=== PATIENT | female | born 1985 | race Caucasian/White ===

== ENCOUNTER → 2017-01-15 | Outpatient (CLI) | payer BC ==
[2017-01-15 07:34] LABS: ANION GAP 8 MEQ/L (8-16); BLOOD UREA NITROGEN 15 MG/DL (7-18); CALCIUM LEVEL 9.1 MG/DL (8.5-10.1); CARBON DIOXIDE LEVEL 28 MEQ/L (21-32); CHLORIDE LEVEL 103 MEQ/L (98-107); CREATININE FOR GFR 0.83 MG/DL (0.55-1.02); FREE T4 1.14 NG/DL (0.76-1.46); GLOMERULAR FILTRATION RATE > 60.0 (>60); GLUCOSE, FASTING 93 MG/DL (70-105); POTASSIUM SERUM 3.9 MEQ/L (3.5-5.1); SODIUM LEVEL 139 MEQ/L (136-145)
[2017-01-15 11:29] LABS: PROGESTERONE 0.4 NG/ML
[2017-01-15 11:30] LABS: LUTEINIZING HORMONE 19.6 mIU/mL
[2017-01-15 11:31] LABS: ESTRADIOL 70.5 PG/ML; FOLLICLE STIMULATING HORMONE 7.7 mIU/mL
== END ==
LOC: M LAB 06:07
PROVIDERS: ATTEND Family Medicine
DX: N92.6 Irregular menstruation, unspecified (principal)

== ENCOUNTER → 2017-03-07 | Outpatient (REF) | payer BC ==
[2017-03-07 13:50] LABS: FREE T4 1.44 NG/DL (0.76-1.46)
== END ==
LOC: M LABDRAWP 12:16
PROVIDERS: ATTEND Family Medicine
DX: E03.9 Hypothyroidism, unspecified (principal); E28.2 Polycystic ovarian syndrome

== ENCOUNTER → 2017-03-26 | Outpatient (REF) | payer BC | LOC: M LABDRAWP 15:43 | PROVIDERS: ATTEND Family Medicine | DX: Z23 Encounter for immunization (principal); N92.6 Irregular menstruation, unspecified ==

== ENCOUNTER → 2017-11-07 | Outpatient (REF) | payer BC ==
[2017-11-07 12:00] LABS: BASO # 0.1 10^3/uL (0.0-0.2); BASO % 0.9 % (0.0-1.0); EOS # 0.1 10^3/uL (0.0-0.50); HEMATOCRIT 37.5 % (36.0-47.0); HEMOGLOBIN 12.7 g/dl (12.0-15.5); IMMATURE GRANULOCYTE % 0.2 % (0-3.0); LYMPH % 22.5 % (24.0-44.0); MEAN CORPUSCULAR HEMOGLOBIN 31.1 pg (27.0-33.0); MEAN CORPUSCULAR HGB CONC 33.9 g/dl (32.0-36.5); MEAN CORPUSCULAR VOLUME 91.7 fl (80.0-96.0); MONO # 0.8 10^3/uL (0.0-0.8); MONO % 9.1 % (0.0-5.0); NEUTROPHILS # 5.7 10^3/uL (1.8-7.7); NEUTROPHILS % 66.3 % (36.0-66.0); PLATELET COUNT, AUTOMATED 263 10^3/uL (150-450); RED BLOOD COUNT 4.09 10^6/uL (4.00-5.40); RED CELL DISTRIBUTION WIDTH 12.7 % (11.5-14.5); WHITE BLOOD COUNT 8.7 10^3/uL (4.0-10.0)
[2017-11-07 13:36] LABS: RUBELLA IgG QUALITATIVE IMMUNE (IMMUNE)
[2017-11-07 13:37] LABS: HBsAg Prenatal NEGATIVE (NEGATIVE)
[2017-11-07 14:04] LABS: CHLAMYDIA DNA AMPLIFICATION NEGATIVE (NEGATIVE); GC DNA AMPLIFICATION NEGATIVE (NEGATIVE)
[2017-11-07 14:05] LABS: HEPATITIS C VIRUS ABY INDEX < 0.0 INDEX (<0.8)
[2017-11-07 14:06] LABS: HIV 1&2 SCREEN CENTAUR NEGATIVE (NEGATIVE)
== END ==
LOC: M LAB REF 11:24
DX: Z34.81 Encounter for supervision of other normal pregnancy, first trimester (principal); Z3A.08 8 weeks gestation of pregnancy
CPT/HCPCS: 86762

== ENCOUNTER → 2017-12-08 | Outpatient (REF) | payer BC ==
[2017-12-08 13:46] LABS: FREE T4 1.27 NG/DL (0.76-1.46)
== END ==
LOC: M LAB REF 11:56
DX: Z34.81 Encounter for supervision of other normal pregnancy, first trimester (principal); Z3A.00 Weeks of gestation of pregnancy not specified
CPT/HCPCS: 84443

== ENCOUNTER → 2018-01-22 | Outpatient (CLI) | payer BC | LOC: M RAD 12:14 | DX: Z34.82 Encounter for supervision of other normal pregnancy, second trimester (principal); Z36.89 Encounter for other specified antenatal screening; Z3A.20 20 weeks gestation of pregnancy | CPT/HCPCS: 76811 ==

== ENCOUNTER → 2018-02-27 | Outpatient (CLI) | payer BC | LOC: M SMT 10:04 | DX: S90.112A Contusion of left great toe without damage to nail, initial encounter (principal); X58.XXXA Exposure to other specified factors, initial encounter; Y92.9 Unspecified place or not applicable | CPT/HCPCS: 73620 ==

== ENCOUNTER 2018-02-28 14:13 | Emergency (ER) | payer BC ==
[2018-02-28 15:00] LABS: BASO % 0.3 % (0.0-1.0); EOS % 0.2 % (0.0-3.0); HEMATOCRIT 36.1 % (36.0-47.0); HEMOGLOBIN 12.7 g/dl (12.0-15.5); IMMATURE GRANULOCYTE % 0.5 % (0-3.0); LYMPH % 15.6 % (24.0-44.0); MEAN CORPUSCULAR HEMOGLOBIN 32.4 pg (27.0-33.0); MEAN CORPUSCULAR HGB CONC 35.2 g/dl (32.0-36.5); MEAN CORPUSCULAR VOLUME 92.1 fl (80.0-96.0); MONO % 7.5 % (0.0-5.0); NEUTROPHILS # 9.8 10^3/uL (1.8-7.7); NEUTROPHILS % 75.9 % (36.0-66.0); PLATELET COUNT, AUTOMATED 197 10^3/uL (150-450); RED BLOOD COUNT 3.92 10^6/uL (4.00-5.40); WHITE BLOOD COUNT 12.9 10^3/uL (4.0-10.0)
[2018-02-28 15:04] LABS: KETONE, URINE AUTO RFX NEGATIVE (NEGATIVE); LEUKOCYTE ESTERASE UR AUTO RFX NEGATIVE (NEGATIVE); NITRITE, URINE AUTO RFX NEGATIVE (NEGATIVE); RBC, URINE AUTO RFX 0 /HPF (0-3); SPECIFIC GRAVITY UR AUTO RFX 1.002 (1.002-1.035); SQUAM EPITHELIAL CELL UR AURFX 0 /HPF (0-6); WBC, URINE AUTO RFX 0 /HPF (0-3)
[2018-02-28] MEDS: ACETAMINOPHEN 325 MG TAB PO (15:16)
[2018-02-28 15:37] LABS: ANION GAP 9 MEQ/L (8-16); BLOOD UREA NITROGEN 10 MG/DL (7-18); C REACTIVE PROTEIN QUANTITATIV 1.01 MG/DL (0.00-0.30); CALCIUM LEVEL 8.5 MG/DL (8.5-10.1); CARBON DIOXIDE LEVEL 21 MEQ/L (21-32); CHLORIDE LEVEL 110 MEQ/L (98-107); CREATININE FOR GFR 0.57 MG/DL (0.55-1.30); GLOMERULAR FILTRATION RATE > 60.0 (>60); GLUCOSE, FASTING 97 MG/DL (70-100); POTASSIUM SERUM 3.6 MEQ/L (3.5-5.1); SODIUM LEVEL 140 MEQ/L (136-145)
== END 2018-02-28 17:28 | disposition home or self-care (01) ==
LOC: M ED 14:13
DX: O26.90 Pregnancy related conditions, unspecified, unspecified trimester (principal); R10.9 Unspecified abdominal pain
CPT/HCPCS: 76775

== ENCOUNTER → 2018-03-12 | Outpatient (CLI) | payer BC ==
[2018-03-12 10:07] LABS: HEMATOCRIT 38.5 % (36.0-47.0); HEMOGLOBIN 13.1 g/dl (12.0-15.5); MEAN CORPUSCULAR HEMOGLOBIN 31.6 pg (27.0-33.0); MEAN CORPUSCULAR VOLUME 92.8 fl (80.0-96.0); PLATELET COUNT, AUTOMATED 222 10^3/uL (150-450); RED BLOOD COUNT 4.15 10^6/uL (4.00-5.40); WHITE BLOOD COUNT 14.1 10^3/uL (4.0-10.0)
[2018-03-12 10:29] LABS: GLUCOSE CHALLENGE TEST 1 HOUR 101 MG/DL (LESS THAN 140)
== END ==
LOC: M LAB 08:19
DX: Z34.82 Encounter for supervision of other normal pregnancy, second trimester (principal); Z36.89 Encounter for other specified antenatal screening
CPT/HCPCS: 82950

== ENCOUNTER 2018-03-30 07:11 | Outpatient (CLI) | payer BC ==
[2018-03-30 08:14] LABS: HEMATOCRIT 36.7 % (36.0-47.0); HEMOGLOBIN 12.9 g/dl (12.0-15.5); MEAN CORPUSCULAR HEMOGLOBIN 31.9 pg (27.0-33.0); MEAN CORPUSCULAR HGB CONC 35.1 g/dl (32.0-36.5); MEAN CORPUSCULAR VOLUME 90.8 fl (80.0-96.0); PLATELET COUNT, AUTOMATED 204 10^3/uL (150-450); RED BLOOD COUNT 4.04 10^6/uL (4.00-5.40); RED CELL DISTRIBUTION WIDTH 12.9 % (11.5-14.5); WHITE BLOOD COUNT 11.9 10^3/uL (4.0-10.0)
[2018-03-30] MEDS: FIORICET TAB PO ×2 (08:14→09:17)
[2018-03-30 08:24] LABS: CREATININE,RANDOM URINE 67.3 MG/DL
[2018-03-30 08:24] LABS: TOTAL PROTEIN,RANDOM URINE 17.9 MG/DL (0.0-12.0)
[2018-03-30 08:33] LABS: ALT/SGPT 18 U/L (12-78); AST/SGOT 14 U/L (7-37); BILIRUBIN,TOTAL 0.2 MG/DL (0.2-1.0); CREATININE FOR GFR 0.53 MG/DL (0.55-1.30); GLOMERULAR FILTRATION RATE > 60.0 (>60); LDH LACTATE DEHYDROGENASE 203 U/L (84-246); URIC ACID 2.8 MG/DL (2.6-6.0)
[2018-03-30 08:36] LABS: ALBUMIN 2.7 GM/DL (3.2-5.2); ALBUMIN/GLOBULIN RATIO 0.77 (1.00-1.93); ALKALINE PHOSPHATASE 127 U/L (45-117); ALT/SGPT 19 U/L (12-78); ANION GAP 8 MEQ/L (8-16); AST/SGOT 15 U/L (7-37); BILIRUBIN,TOTAL 0.2 MG/DL (0.2-1.0); BLOOD UREA NITROGEN 7 MG/DL (7-18); CALCIUM LEVEL 8.7 MG/DL (8.5-10.1); CARBON DIOXIDE LEVEL 22 MEQ/L (21-32); CHLORIDE LEVEL 109 MEQ/L (98-107); CREATININE FOR GFR 0.52 MG/DL (0.55-1.30); GLOMERULAR FILTRATION RATE > 60.0 (>60); GLUCOSE, FASTING 99 MG/DL (70-100); POTASSIUM SERUM 3.9 MEQ/L (3.5-5.1); SODIUM LEVEL 139 MEQ/L (136-145); TOTAL PROTEIN 6.2 GM/DL (6.4-8.2)
[2018-03-30 09:06] LABS: AMORPHOUS SEDIMENT SMALL (NEGATIVE); APPEARANCE, URINE HAZY (CLEAR); BACTERIA, URINE AUTO 2+ (NEGATIVE); BILIRUBIN, URINE AUTO NEGATIVE (NEGATIVE); BLOOD, URINE BLOOD NEGATIVE (NEGATIVE); COLOR, URINE YELLOW (YELLOW); GLUCOSE, URINE (UA) AUTO NEGATIVE (NEGATIVE); KETONE, URINE AUTO NEGATIVE (NEGATIVE); LEUKOCYTE ESTERASE, URINE AUTO TRACE (NEGATIVE); MUCUS, URINE SMALL (NEGATIVE); NITRITE, URINE AUTO NEGATIVE (NEGATIVE); PROTEIN, URINE AUTO NEGATIVE (NEGATIVE); RBC, URINE AUTO 1 /HPF (0-3); SPECIFIC GRAVITY URINE AUTO 1.013 (1.002-1.035); SQUAMOUS EPITHELIAL CELL UR AU 2 /HPF (0-6); UROBILINOGEN, URINE AUTO 0.2 mg/dL (0.0-2.0); WBC, URINE AUTO 2 /HPF (0-3)
[2018-03-30] MEDS: KETOROLAC 60 MG/2 ML VIAL (J1885) IM (10:10)
[2018-03-30] MEDS ORDERED: FIORICET TAB PO (15:00)
== END 2018-03-30 10:59 | disposition home or self-care (01) ==
LOC: M LDO 07:11
DX: O99.89 Other specified diseases and conditions complicating pregnancy, childbirth and the puerperium (principal); R51 Headache; O26.893 Other specified pregnancy related conditions, third trimester; R03.0 Elevated blood-pressure reading, without diagnosis of hypertension; Z3A.29 29 weeks gestation of pregnancy
CPT/HCPCS: J1885

== ENCOUNTER → 2018-03-31 | Outpatient (CLI) | payer BC ==
[2018-03-31 14:53] LABS: URINE TOTAL PROTEIN 8.6 MG/DL (0-12)
[2018-03-31 15:22] LABS: TOTAL PROTEIN 24 HOUR URINE 292.4 MG/24HR (50-150); TOTAL VOLUME, URINE 3400 ML
== END ==
LOC: M SMT 12:57
DX: Z36.9 Encounter for antenatal screening, unspecified (principal); O13.3 Gestational [pregnancy-induced] hypertension without significant proteinuria, third trimester; Z3A.28 28 weeks gestation of pregnancy
CPT/HCPCS: 81050

== ENCOUNTER 2018-04-02 17:29 | Outpatient (CLI) | payer BC ==
[2018-04-02 18:51] LABS: HEMATOCRIT 35.1 % (36.0-47.0); MEAN CORPUSCULAR HEMOGLOBIN 31.8 pg (27.0-33.0); MEAN CORPUSCULAR HGB CONC 34.2 g/dl (32.0-36.5); MEAN CORPUSCULAR VOLUME 93.1 fl (80.0-96.0); PLATELET COUNT, AUTOMATED 206 10^3/uL (150-450); RED BLOOD COUNT 3.77 10^6/uL (4.00-5.40); RED CELL DISTRIBUTION WIDTH 12.9 % (11.5-14.5); WHITE BLOOD COUNT 12.3 10^3/uL (4.0-10.0)
[2018-04-02 19:09] LABS: TOTAL PROTEIN,RANDOM URINE 16.5 MG/DL (0.0-12.0)
[2018-04-02 19:09] LABS: CREATININE,RANDOM URINE 89.6 MG/DL
[2018-04-02 19:10] LABS: ALT/SGPT 31 U/L (12-78); AST/SGOT 27 U/L (7-37); BILIRUBIN,TOTAL 0.2 MG/DL (0.2-1.0); CREATININE FOR GFR 0.62 MG/DL (0.55-1.30); GLOMERULAR FILTRATION RATE > 60.0 (>60); LDH LACTATE DEHYDROGENASE 198 U/L (84-246)
== END 2018-04-02 20:11 | disposition home or self-care (01) ==
LOC: M LDO 17:29
DX: O13.3 Gestational [pregnancy-induced] hypertension without significant proteinuria, third trimester (principal); Z3A.29 29 weeks gestation of pregnancy
CPT/HCPCS: G0463

== ENCOUNTER → 2018-04-09 | Outpatient (REF) | payer BC ==
[2018-04-09 15:34] LABS: TOTAL PROTEIN,RANDOM URINE 13.7 MG/DL (0.0-12.0)
== END ==
LOC: M LAB REF 13:32
DX: O13.3 Gestational [pregnancy-induced] hypertension without significant proteinuria, third trimester (principal)

== ENCOUNTER → 2018-04-09 | Outpatient (CLI) | payer BC ==
[2018-04-09 19:22] LABS: HEMATOCRIT 41.4 % (36.0-47.0); HEMOGLOBIN 13.5 g/dl (12.0-15.5); MEAN CORPUSCULAR HEMOGLOBIN 31.1 pg (27.0-33.0); MEAN CORPUSCULAR HGB CONC 32.6 g/dl (32.0-36.5); MEAN CORPUSCULAR VOLUME 95.4 fl (80.0-96.0); PLATELET COUNT, AUTOMATED 243 10^3/uL (150-450); RED BLOOD COUNT 4.34 10^6/uL (4.00-5.40); RED CELL DISTRIBUTION WIDTH 13.1 % (11.5-14.5); WHITE BLOOD COUNT 15.1 10^3/uL (4.0-10.0)
[2018-04-09 19:35] LABS: ALT/SGPT 23 U/L (12-78); AST/SGOT 15 U/L (7-37); BILIRUBIN,TOTAL 0.2 MG/DL (0.2-1.0); GLOMERULAR FILTRATION RATE > 60.0 (>60); LDH LACTATE DEHYDROGENASE 195 U/L (84-246); URIC ACID 2.9 MG/DL (2.6-6.0)
== END ==
LOC: M SMT 10:58
DX: O13.3 Gestational [pregnancy-induced] hypertension without significant proteinuria, third trimester (principal); Z3A.00 Weeks of gestation of pregnancy not specified
CPT/HCPCS: 84460

== ENCOUNTER → 2018-04-21 | Outpatient (CLI) | payer BC | LOC: M SMT 14:58 | DX: O13.3 Gestational [pregnancy-induced] hypertension without significant proteinuria, third trimester (principal) | CPT/HCPCS: 76816 ==

== ENCOUNTER → 2018-05-07 | Outpatient (REF) | payer BC | LOC: M LAB REF 17:13 | DX: Z34.83 Encounter for supervision of other normal pregnancy, third trimester (principal); Z3A.00 Weeks of gestation of pregnancy not specified ==

== ENCOUNTER 2018-05-11 16:15 | Outpatient (CLI) | payer BC ==
[2018-05-11] MEDS: ONDANSETRON 4 MG ORAL DISINTEGRATING TAB (Q0162 PER 1MG) PO ×2 (17:10)
[2018-05-11 18:00] LABS: HEMATOCRIT 39.4 % (36.0-47.0); HEMOGLOBIN 13.4 g/dl (12.0-15.5); MEAN CORPUSCULAR HEMOGLOBIN 31.4 pg (27.0-33.0); MEAN CORPUSCULAR VOLUME 92.3 fl (80.0-96.0); PLATELET COUNT, AUTOMATED 192 10^3/uL (150-450); RED BLOOD COUNT 4.27 10^6/uL (4.00-5.40); RED CELL DISTRIBUTION WIDTH 12.9 % (11.5-14.5); WHITE BLOOD COUNT 13.7 10^3/uL (4.0-10.0)
[2018-05-11] MEDS: BETAMETHASONE SOLUSPAN 6MG/ML INJ 5ML (J0702) IM ×2 (18:01)
[2018-05-11 18:07] LABS: TOTAL PROTEIN,RANDOM URINE 7.7 MG/DL (0.0-12.0)
[2018-05-11 18:07] LABS: CREATININE,RANDOM URINE 40.9 MG/DL
[2018-05-11 18:18] LABS: ALBUMIN 2.7 GM/DL (3.2-5.2); ALBUMIN/GLOBULIN RATIO 0.75 (1.00-1.93); ALKALINE PHOSPHATASE 225 U/L (45-117); ALT/SGPT 25 U/L (12-78); ANION GAP 10 MEQ/L (8-16); AST/SGOT 23 U/L (7-37); BILIRUBIN,TOTAL 0.3 MG/DL (0.2-1.0); BLOOD UREA NITROGEN 12 MG/DL (7-18); CALCIUM LEVEL 8.7 MG/DL (8.5-10.1); CARBON DIOXIDE LEVEL 22 MEQ/L (21-32); CHLORIDE LEVEL 108 MEQ/L (98-107); CREATININE FOR GFR 0.66 MG/DL (0.55-1.30); GLOMERULAR FILTRATION RATE > 60.0 (>60); GLUCOSE, FASTING 75 MG/DL (70-100); LDH LACTATE DEHYDROGENASE 230 U/L (84-246); SODIUM LEVEL 140 MEQ/L (136-145); TOTAL PROTEIN 6.3 GM/DL (6.4-8.2); URIC ACID 4.6 MG/DL (2.6-6.0)
[2018-05-11 18:23] LABS: GOLD SPEC TUBE RECIEVED
== END 2018-05-11 18:40 | disposition home or self-care (01) ==
LOC: M LDO 16:15
DX: O16.3 Unspecified maternal hypertension, third trimester (principal); Z3A.35 35 weeks gestation of pregnancy
CPT/HCPCS: J0702

== ENCOUNTER 2018-05-12 16:59 | Outpatient (CLI) | payer BC ==
[2018-05-12] MEDS: BETAMETHASONE SOLUSPAN 6MG/ML INJ 5ML (J0702) IM (17:55)
== END 2018-05-12 18:03 | disposition home or self-care (01) ==
LOC: M LDO 16:59
DX: O13.3 Gestational [pregnancy-induced] hypertension without significant proteinuria, third trimester (principal); Z3A.35 35 weeks gestation of pregnancy
CPT/HCPCS: J0702

== ENCOUNTER 2018-05-13 16:35 | Outpatient (CLI) | payer BC | END 2018-05-13 17:57 | disposition home or self-care (01) | LOC: M LDO 16:35 | DX: O13.3 Gestational [pregnancy-induced] hypertension without significant proteinuria, third trimester (principal); Z3A.35 35 weeks gestation of pregnancy | CPT/HCPCS: 59025 ==

== ENCOUNTER → 2018-05-13 | Outpatient (CLI) | payer BC | LOC: M SMT 14:54 | DX: O13.3 Gestational [pregnancy-induced] hypertension without significant proteinuria, third trimester (principal); Z3A.35 35 weeks gestation of pregnancy | CPT/HCPCS: 76816 ==

== ENCOUNTER 2018-05-17 18:48 | Inpatient (IN) | payer BC ==
[2018-05-17 19:42] LABS: HEMATOCRIT 36.9 % (36.0-47.0); HEMOGLOBIN 12.8 g/dl (12.0-15.5); MEAN CORPUSCULAR HEMOGLOBIN 31.7 pg (27.0-33.0); MEAN CORPUSCULAR HGB CONC 34.7 g/dl (32.0-36.5); MEAN CORPUSCULAR VOLUME 91.3 fl (80.0-96.0); PLATELET COUNT, AUTOMATED 188 10^3/uL (150-450); RED BLOOD COUNT 4.04 10^6/uL (4.00-5.40); RED CELL DISTRIBUTION WIDTH 12.6 % (11.5-14.5); WHITE BLOOD COUNT 13.8 10^3/uL (4.0-10.0)
[2018-05-17] MEDS: PROMETHAZINE INJ 25 MG/ML VIAL (J2550) IV (19:47)
[2018-05-17 20:00] LABS: ALT/SGPT 29 U/L (12-78); AST/SGOT 30 U/L (7-37); BILIRUBIN,TOTAL 0.3 MG/DL (0.2-1.0); CREATININE FOR GFR 0.71 MG/DL (0.55-1.30); GLOMERULAR FILTRATION RATE > 60.0 (>60); LDH LACTATE DEHYDROGENASE 339 U/L (84-246); URIC ACID 4.4 MG/DL (2.6-6.0)
[2018-05-17 20:06] LABS: CREATININE,RANDOM URINE 69.6 MG/DL
[2018-05-17 20:06] LABS: TOTAL PROTEIN,RANDOM URINE 31.5 MG/DL (0.0-12.0)
[2018-05-17] MEDS: LR 1,000 ML IV ×3 (21:35→23:45)
[2018-05-17] MEDS: BICITRA 30ML SOLN UDC PO (21:57)
[2018-05-17] MEDS ORDERED: MORPHINE PRES-FREE INJ 10 MG/10 ML VIAL (J2274) As Ordered (22:00)
[2018-05-17] MEDS ORDERED: OXYTOCIN INJ 10 UNITS/ML VIAL (J2590) As Ordered ×4 (22:00→22:09)
[2018-05-17] MEDS ORDERED: dexameTHASONE 4 MG/ML 1ML VIAL (J1100) As Ordered (22:09)
[2018-05-17] MEDS ORDERED: ONDANSETRON 4MG/2ML VIAL (J2405) As Ordered (22:10)
[2018-05-17] MEDS ORDERED: NALBUPHINE HCL 10 MG/ML AMP (J2300) IV (22:22)
[2018-05-17] MEDS ORDERED: ONDANSETRON 4MG/2ML VIAL (J2405) IV ×2 (22:22→23:45)
[2018-05-17] MEDS ORDERED: NALOXONE INJ 0.4 MG/1 ML VIAL (J2310) IV ×2 (22:22)
[2018-05-17] MEDS ORDERED: METOCLOPRAMIDE INJ 10MG/2ML VIAL (J2765) IV ×2 (22:22→23:45)
[2018-05-17 23:06] LABS: CORD GAS ABE V -0.2; CORD GAS HCO3 V 25.3 MEQ/L; CORD GAS PCO2 V 43.9 mmHg; CORD GAS PH V 7.378 UNITS; CORD GAS PO2 V 25.2 mmHg; CORD GAS SBC V 23.5 MEQ/L; CORD GAS TCO2 V 26.6 MEQ/L
[2018-05-17 23:07] LABS: CORD GAS ABE A 0.4; CORD GAS HCO3 A 29.1 MEQ/L; CORD GAS O2 SAT A < 15.0 %; CORD GAS PH A 7.275 UNITS; CORD GAS PO2 A < 10.0 mmHg
[2018-05-17] MEDS: OXYTOCIN DRIP 30 UNITS in APPROPRIATE DILUENT 1 EA IV (23:34)
[2018-05-17] MEDS ORDERED: KETOROLAC 30 MG/ML VIAL (J1885) As Ordered (23:42)
[2018-05-17] MEDS ORDERED: OXYTOCIN 30 UNITS IN 0.9% NaCl 500ML IV BAG (J2590) As Ordered (23:44)
[2018-05-17] MEDS: KETOROLAC 30 MG/ML VIAL (J1885) IV (23:44)
[2018-05-17] MEDS ORDERED: MOM 30ML SUSPENSION UDC PO (23:45)
[2018-05-17] MEDS ORDERED: MEPERIDINE INJ 25 MG/ML VIAL (J2175) IV (23:45)
[2018-05-17] MEDS ORDERED: RHOGAM 300 MCG (1500 IU) INJ (J2790) IM (23:45)
[2018-05-17] MEDS ORDERED: fentaNYL 100 MCG/2 ML INJECTION (J3010) IV (23:45)
[2018-05-17] MEDS ORDERED: PERCOCET 5MG/325MG TAB PO ×3 (23:45)
[2018-05-17] MEDS ORDERED: MEASLES,MUMPS,RUBELLA VACCINE INJ (MMR-II) (90707) SC (23:45)
[2018-05-18] MEDS: KETOROLAC 30 MG/ML VIAL (J1885) IV ×3 (06:06→18:00)
[2018-05-18 06:48] LABS: HEMATOCRIT 33.1 % (36.0-47.0); HEMOGLOBIN 11.5 g/dl (12.0-15.5); MEAN CORPUSCULAR HEMOGLOBIN 31.5 pg (27.0-33.0); MEAN CORPUSCULAR HGB CONC 34.7 g/dl (32.0-36.5); MEAN CORPUSCULAR VOLUME 90.7 fl (80.0-96.0); PLATELET COUNT, AUTOMATED 147 10^3/uL (150-450); RED BLOOD COUNT 3.65 10^6/uL (4.00-5.40); RED CELL DISTRIBUTION WIDTH 12.4 % (11.5-14.5); WHITE BLOOD COUNT 25.5 10^3/uL (4.0-10.0)
[2018-05-18] MEDS: LR 1,000 ML IV ×2 (07:34→20:29)
[2018-05-18] MEDS: PRENATAL VITAMINS CHEWABLE TABLET PO (08:58)
[2018-05-18] MEDS: ESCITALOPRAM OXALATE 5MG TABLET (LEXAPRO) PO (09:59)
[2018-05-18] MEDS: DOCUSATE SODIUM 100 MG CAP PO (19:27)
[2018-05-18] MEDS: NORCO, ANEXSIA 5/325MG TABLET (HYDROcodone/ACETAMINOPHEN) PO ×2 (19:28→23:38)
[2018-05-19] MEDS: IBUPROFEN 800 MG TAB PO ×3 (02:56→17:55)
[2018-05-19] MEDS: NORCO, ANEXSIA 5/325MG TABLET (HYDROcodone/ACETAMINOPHEN) PO ×3 (07:32→18:48)
[2018-05-19] MEDS: ESCITALOPRAM OXALATE 5MG TABLET (LEXAPRO) PO (09:39)
[2018-05-19] MEDS: PRENATAL VITAMINS CHEWABLE TABLET PO (09:40)
[2018-05-19] MEDS: ONDANSETRON 4MG/2ML VIAL (J2405) IV ×3 (20:18→20:19)
[2018-05-19] MEDS: DOCUSATE SODIUM 100 MG CAP PO (20:22)
[2018-05-19] MEDS ORDERED: ONDANSETRON 4MG/2ML VIAL (J2405) IV (20:30)
[2018-05-20] MEDS: IBUPROFEN 800 MG TAB PO ×2 (02:16→09:35)
[2018-05-20] MEDS: NORCO, ANEXSIA 5/325MG TABLET (HYDROcodone/ACETAMINOPHEN) PO ×2 (02:18→09:35)
[2018-05-20] MEDS: ESCITALOPRAM OXALATE 5MG TABLET (LEXAPRO) PO (08:17)
[2018-05-20] MEDS: PRENATAL VITAMINS CHEWABLE TABLET PO (08:17)
== END 2018-05-20 10:22 | disposition home or self-care (01) | DRG 540 ==
LOC: M LDO 18:48 → M LDI 19:25 → M OBS 05-18 10:50
PROC: 10D00Z1 Extraction of Products of Conception, Low, Open Approach (ICD-10-PCS; principal; 2018-05-17 22:14)
DX: O14.14 Severe pre-eclampsia complicating childbirth (principal); Z37.0 Single live birth; Z3A.36 36 weeks gestation of pregnancy; O32.1XX0 Maternal care for breech presentation, not applicable or unspecified

== ENCOUNTER → 2019-05-27 | Outpatient (REF) | payer BC ==
[~2019-05-27] MED LIST: BUTA-198 PO; BUTA1CAP4 PO; ESCI5SOL3 PO; IBUP-1114 PO; LEXA5TAB13 PO; MAPA500T2 PO; PHEN25IN3 PO; PRENCHW PO; RANI15TA PO; TRAZ-252 PO; TUMS500C PO; TYLE500T78 PO; VICO5TAB17 PO; ZOFR4TAB14 SL; [UNRECOGNIZED DRUG - OTHER] PO
[2019-05-27 11:07] LABS: BASO % 0.6 % (0.0-1.0); EOS # 0.1 10^3/uL (0.0-0.5); EOS % 1.1 % (0.0-3.0); HEMATOCRIT 43.5 % (36.0-47.0); HEMOGLOBIN 14.4 g/dl (12.0-15.5); LYMPH # 1.5 10^3/uL (1.5-5.0); LYMPH % 22.3 % (24.0-44.0); MEAN CORPUSCULAR HEMOGLOBIN 30.7 pg (27.0-33.0); MEAN CORPUSCULAR HGB CONC 33.1 g/dl (32.0-36.5); MEAN CORPUSCULAR VOLUME 92.8 fl (80.0-96.0); MONO # 0.6 10^3/uL (0.0-0.8); MONO % 9.2 % (0.0-5.0); NEUTROPHILS # 4.4 10^3/uL (1.5-8.5); NEUTROPHILS % 66.3 % (36.0-66.0); PLATELET COUNT, AUTOMATED 259 10^3/uL (150-450); RED BLOOD COUNT 4.69 10^6/uL (4.00-5.40); WHITE BLOOD COUNT 6.6 10^3/uL (4.0-10.0)
[2019-05-27 11:18] LABS: ALBUMIN 4.2 GM/DL (3.2-5.2); ALT/SGPT 26 U/L (12-78); BILIRUBIN,TOTAL 0.7 MG/DL (0.2-1.0); BLOOD UREA NITROGEN 14 MG/DL (7-18); CALCIUM LEVEL 9.2 MG/DL (8.5-10.1); CARBON DIOXIDE LEVEL 30 MEQ/L (21-32); CHLORIDE LEVEL 106 MEQ/L (98-107); CREATININE FOR GFR 0.83 MG/DL (0.55-1.30); FREE T4 1.15 NG/DL (0.76-1.46); GLOMERULAR FILTRATION RATE > 60.0 (>60); GLUCOSE, FASTING 94 MG/DL (70-100); POTASSIUM SERUM 3.9 MEQ/L (3.5-5.1); SODIUM LEVEL 140 MEQ/L (136-145); TOTAL PROTEIN 7.5 GM/DL (6.4-8.2)
== END ==
LOC: M LABDRAWP 07:52
PROVIDERS: ATTEND Family Medicine
DX: Z13.0 Encounter for screening for diseases of the blood and blood-forming organs and certain disorders involving the immune mechanism (principal); Z13.29 Encounter for screening for other suspected endocrine disorder

== ENCOUNTER → 2020-06-14 | Outpatient (CLI) | payer SELFPAY | LOC: M LABSMTC 14:36 | PROVIDERS: ATTEND Pediatrics | DX: Z20.828 Contact with and (suspected) exposure to other viral communicable diseases (principal) ==

== ENCOUNTER → 2020-08-04 | Outpatient (CLI) | payer SELFPAY | LOC: M LABSMTC 13:19 | PROVIDERS: ATTEND Pediatrics | DX: Z20.822 Contact with and (suspected) exposure to COVID-19 (principal) ==

== ENCOUNTER → 2020-11-07 | Outpatient (REF) | payer BC ==
[2020-11-07 17:42] LABS: HEMOGLOBIN 12.9 g/dl (12.0-15.5); MEAN CORPUSCULAR HEMOGLOBIN 30.6 pg (27.0-33.0); MEAN CORPUSCULAR HGB CONC 33.1 g/dl (32.0-36.5); MEAN CORPUSCULAR VOLUME 92.6 fl (80.0-96.0); PLATELET COUNT, AUTOMATED 273 10^3/uL (150-450); RED BLOOD COUNT 4.21 10^6/uL (4.00-5.40); WHITE BLOOD COUNT 11.6 10^3/uL (4.0-10.0)
[2020-11-07 18:14] LABS: FREE T4 1.13 NG/DL (0.76-1.46)
[2020-11-07 18:58] LABS: HEPATITIS C VIRUS ABY INDEX < 0.0 INDEX (<0.8)
[2020-11-10 09:09] LABS: HIV 1&2 SCREEN CENTAUR NEGATIVE (NEGATIVE)
== END ==
LOC: M PLALAB 15:32
PROVIDERS: ATTEND Specialist
DX: Z34.81 Encounter for supervision of other normal pregnancy, first trimester (principal)

== ENCOUNTER → 2020-12-05 | Outpatient (CLI) | payer BC | LOC: M PLALAB 15:40 | PROVIDERS: ATTEND Specialist | DX: Z34.81 Encounter for supervision of other normal pregnancy, first trimester (principal) ==

== ENCOUNTER → 2021-01-31 | Outpatient (CLI) | payer BC ==
--- NOTE | 2021-01-31 15:36 | REP ---
INDICATION: ANATOMY. COMPARISON: None. TECHNIQUE: Transabdominal obstetric sonography. FINDINGS: Scanning through the gravid uterus demonstrates a viable single intrauterine gestation in transverse lie. motion is observed and heart rate is recorded at 155 beats per minute. A anterior placenta is seen, grade 1, without evidence of placenta previa. Closed cervical length is measured at 4.4 cm transabdominally. No extrauterine abnormality is observed. Amniotic fluid is subjectively normal. No anomaly is seen. The following anatomic structures are identified and felt to be sonographically unremarkable: cranium, choroid plexus, cavum, cerebellum and posterior fossa, face and profile, lungs, four-chamber heart with left and right ventricular outflow tract views, diaphragm, left-sided stomach, abdominal wall cord insertion, three-vessel umbilical cord, kidneys and bladder, spine, and upper and lower extremities. Biometry chart: BPD 4.6 cm, 20 weeks 0 days Head circumference 17.8 cm, 20 weeks 2 days Abdominal circumference 14.9 cm, 20 weeks 1 day Femur length 3.2 cm, 19 weeks 6 days Humeral length 3.2 cm, 20 weeks 4 days HC AC ratio normal 1.20 Cephalic index normal 0.71 Estimated weight 330 g, 0 lb 11 oz, 49th percentile for 20 weeks 0 days IMPRESSION: Viable single intrauterine gestation at 20 weeks 1 days by today's composite sonographic criteria. RUKHSANA by today's sonography June 19, 2021. No complication identified. Expected gestational age estimate from known RUKHSANA 20 weeks 0 days. Known RUKHSANA June 20, 2021. <Electronically signed by [place] > 01/31/21 [id number]
== END ==
LOC: M WHC 14:14
PROVIDERS: ATTEND Obstetrics & Gynecology
DX: O34.211 Maternal care for low transverse scar from previous cesarean delivery (principal)

== ENCOUNTER → 2021-03-14 | Outpatient (CLI) | payer BC ==
[2021-03-14 11:00] LABS: HEMATOCRIT 38.7 % (36.0-47.0); MEAN CORPUSCULAR HEMOGLOBIN 31.6 pg (27.0-33.0); MEAN CORPUSCULAR HGB CONC 33.6 g/dl (32.0-36.5); MEAN CORPUSCULAR VOLUME 93.9 fl (80.0-96.0); PLATELET COUNT, AUTOMATED 216 10^3/uL (150-450); RED BLOOD COUNT 4.12 10^6/uL (4.00-5.40); WHITE BLOOD COUNT 13.1 10^3/uL (4.0-10.0)
[2021-03-14 11:34] LABS: FREE T4 0.88 NG/DL (0.76-1.46); THYROID STIMULATING HORMONE 2.45 uIU/ML (0.358-3.740)
== END ==
LOC: M PLALAB 07:16
PROVIDERS: ATTEND Advanced Practice Midwife
DX: O34.211 Maternal care for low transverse scar from previous cesarean delivery (principal); Z3A.00 Weeks of gestation of pregnancy not specified

== ENCOUNTER → 2021-03-30 | Outpatient (REF) | LOC: M EMP 16:48 | PROVIDERS: ATTEND Family Medicine | DX: Z20.822 Contact with and (suspected) exposure to COVID-19 (principal) ==

== ENCOUNTER → 2021-05-29 | Outpatient (REF) | payer BC ==
[~2021-05-29] MED LIST changes: +BAYE81TA10 PO; +FAMO20TA PO; +OMEP1CAP73 PO; +ZOFR4TAB16 PO
== END ==
LOC: M SFHCWAGY 09:56
PROVIDERS: ATTEND Specialist
DX: Z34.83 Encounter for supervision of other normal pregnancy, third trimester (principal)

== ENCOUNTER → 2021-06-08 | Outpatient (CLI) | payer BC ==
[~2021-06-08] MED LIST changes: +HYDR-3715 PO; +IBUP80TA PO
== END ==
LOC: M LABSMTC 11:51
PROVIDERS: ATTEND Anesthesiology
DX: Z01.812 Encounter for preprocedural laboratory examination (principal); Z20.822 Contact with and (suspected) exposure to COVID-19

== ENCOUNTER 2021-06-13 05:40 | Inpatient (IN) | payer BC ==
[2021-06-13] VITALS (8 sets, daily range): BP systolic 110–128; BP diastolic 61–80
[~2021-06-13] VITALS: Ht 165.1 cm; Wt 85.3 kg
[~2021-06-13 05:40] MED LIST changes: -HYDR-3715 PO; -IBUP80TA PO
--- OUTSIDE RECORDS SUMMARY | 2021-06-13 05:43 | CCD ---
Author Author [facility] Organization [facility] Address Unknown Phone Unavailable Care Team Providers Care Cheese Processor Name Role Phone Peewee Suarez Unavailable PROBLEMS Type Condition ICD9-CM Code [id number] Code Onset Dates Condition S tatus W/U Status Risk SNOMED Code Notes Problem Supervision of other normal Z34.80 Ac tive confirm [id number] ALLERGIES No Known Allergies ENCOUNTERS from 1986 to 2021-04-09 Encounter Location Date Provider Diagnosis [facility] [address] [facility] [phone] [place] [address] Mar, Peewee Suarez Encounter for superv ision of other normal in third trimester Z34.83 and 28 weeks gestation of Z3A.28 IMMUNIZATIONS No Information SOCIAL HISTORY Tobacco Use: Social History Observation Description Date Details (start date - stop date) Never Smoker Sex Assigned At : Social History Observation Description Sex Assigned At Unknown Alcohol Screening: Question Answer Notes Did you have a drink containing alcohol in the past year? No Points 0 Interpretation Negative Tobacco Use: Question Answer Notes Are you a: never smoker REASON FOR REFERRAL No Information VITAL SIGNS Weight 176.6 lbs Mar, Weight-kg 80.1 kg Mar, Height 65 in Mar, BMI 29.388 kg/m2 Mar, Blood pressure systolic 120 mm Hg Mar, Blood pressure diastolic 70 mm Hg Mar, MEDICATIONS Medication SIG (Take, Route, Frequency, Duration) Notes Start Da te End Date Status 27-1 MG 1 tablet Orally Once a day Active Vitamin B6 50 MG 1 tablet Orally Not -Taking Aspirin 81 81 MG 1 tablet Orally Once a day Active Omeprazole 20 MG 1 capsule 30 minutes before morning meal Orally On ce a day Active traZODone HCl 50 MG 0.5 tablet at bedtime Orally Once a day Active FLUoxetine HCl 10 MG 1 capsule Orally Once a day Active Camila Allergy 180 MG 1 tablet Orally Once a day Active Unisom SleepTabs 25 MG 1 tablet at bedtime as needed Orally Once a da y Not-Taking PROCEDURES No Information RESULTS No Results REASON FOR VISIT 4 WK PN MEDICAL (GENERAL) HISTORY Type Description Date Medical History Hypothyroid Medical History Gestational hypertension Medical History anxiety Medical History insomnia Surgical History Left radial fracture repair Surgical History Oral surgery Hospitalization History Childbirth Hospitalization History Surgical related Goals Section No Information Health Concerns No Information MEDICAL EQUIPMENT No Information MENTAL STATUS No Information FUNCTIONAL STATUS No Information ASSESSMENTS Encounter Date Diagnosis Assessment Notes Treatment Notes Treatm ent Clinical Notes Mar, Encounter for supervision of other normal in third trimester (ICD-10 - Z34.83) Mar, 28 weeks gestation of (ICD-10 - Z3A.28 ) PLAN OF TREATMENT Next Appt Details Provider Name:Chandni Avelar, 2021-04-16 0 3:20:00 PM, [address] [place], [place] [address], [place], [place], [address] [place] [address], Provider Name:Peewee Suarez 2021-05-01 03:45:00 PM, [address] [place] [address], [place], [address], Provider Name:Chandni Avelar 2021-05-22 0 3:20:00 PM, [address] [place], [place] [address], [place], [address], Provider Name:Peewee Suarez 2021-05-29 03:40:00 PM, [address] [place] [address], [place], [address], Provider Name:Peewee Suarez 2021-06-05 03:30:00 PM, [address] [place] [address], [place], [address], Provider Name:Chandni Avelar 2021-06-13 0 7:30:00 AM, [address] [facility], , [place], [address], Provider Name:Viktoriya Medina, 2021-06-13 0 7:30:00 AM, [address] [facility], , [place], [address], Insurance Providers Payer Name Payer Address Payer Phone Insured Name Patient Relati onship to Insured Coverage Start Date Coverage End Date BCBS [place] SUE PPO [phone] [facility] [place] [facility] [place] [address] DAYANA JACOBO self
--- OUTSIDE RECORDS SUMMARY | 2021-06-13 05:43 | CCD | Continuity of Care Document ---
Author Author Maria FOUNTAIN D.O. Organization Unknown Address [address] [place] [address] Phone [phone] Care Team Providers Care Molded Parts Inspector Name Role Phone Dulce Fountain D.O. AUTM [phone] Problems Active Problems Provider Date Insomnia Dulce Fountain D.O. Onset: 2015 Irregular periods Dulce Fountain D.O. Onset: 2016 Social History Type Date Description Comments Sex Unknown ETOH Use Currently consumes alcohol 1-2 p er day Tobacco Use Start: Unknown Patient has never smoked Recreational Drug Use Denies Drug Use Smoking Status Reviewed: 05/29/20 Patient has never smoked Exercise Type/Frequency Exercises regularly 3-5 times a week Sun Exposure Uses sunscreen Seat Belt/Car Seat Always uses seat belt Allergies and adverse reactions Description No Known Drug Allergies Medications Active Medications SIG Qnty Indications Ordering Provide r Date Post-Op Shoe/Soft TOP/Women/Medium Misc Use as directed. Dx: left great toe fracture 1units Dulce Fountain D.O. 02/27/2018 Trazodone HCL 50mg Tablets 1 tablet by mouth each night as needed 45tabs Dulce Fountain D.O. Ibuprofen 800mg Tablets 1 by mouth three times a day as needed for pain Unknown 0 Flonase Allergy Relief 50mcg/Act Suspension 1 spray in each nostril daily Unknown Fluoxetine HCL (PMDD) 10mg Capsule s take 1 by mouth daily. Unknown Camila Allergy 180mg Tablets take 1 tab by mouth daily Unknown Medications Administered in Office Medication SIG Qnty Indications Ordering Provider Date Covid-19 vaccine, Unspecified Inj ection Unknown 08/01/2020 Covid-19 vaccine, Unspecified Inj ection Unknown 07/11/2020 Immunizations Description No Information Available Vital Signs Date Vital Result Comment 05/29/2020 3:57pm BP Systolic 102 mmHg BP Diastolic 80 mmHg Height 64.2 inches 5'4.20" Weight 151.50 lb BMI (Body Mass Index) 25.8 kg/m2 Heart Rate 97 /min Respiratory Rate 16 /min Body Temperature 97.9 F O2 % BldC Oximetry 98 % Hepler Body Weight 120 lb 09/06/2019 9:39am BP Systolic 126 mmHg BP Diastolic 72 mmHg Height 64.2 inches 5'4.20" Weight 147.38 lb BMI (Body Mass Index) 25.1 kg/m2 Heart Rate 108 /min Respiratory Rate 18 /min Body Temperature 99.5 F O2 % BldC Oximetry 97 % Hepler Body Weight 120 lb Results Test Acquired Date Facility Test Result H/L Range Note Coronavirus 2019 Nasopharygeal 06/08/2021 [facility] Outpa tient Testing (Registration) [address] [place] [id number] [phone] Coronavirus 2019 Nasopharygeal ASSAY INFORMATIO <SEE N OTE> 1 1 ASSAY INFORMATION: Real Time RT-PCR NOTE: The COVID-19 assay has been cleared by the U.S. Food and Drug Administration under the Emergency Use Authorization (EUA). [facility] and [facility] are designated as high complexity laboratories by the Clinical Laboratory Improvement Amendments of 1988(CLIA) and are qualified to perform this test. Not Detected Procedures Description No Information Available Medical Devices Description No Information Available Encounters Description No Information Available Assessments Description No Information Available Plan of Treatment Future Appointment(s):* 07/06/2021 11:00 am - Dulce Fountain D.O. at [facility] Functional Status Description No Information Available Mental Status Description No Information Available Referrals Description No Information Available
--- OUTSIDE RECORDS SUMMARY | 2021-06-13 05:43 | CCD ---
Author Author [facility] Organization [facility] Address Unknown Phone Unavailable Care Team Providers Care Food Beverage Server Name Role Phone Chandni Avelar Unavailable PROBLEMS Type Condition ICD9-CM Code [id number] Code Onset Dates Condition S tatus W/U Status Risk SNOMED Code Notes Problem Supervision of other normal Z34.80 Ac tive confirm [id number] ALLERGIES No Known Allergies ENCOUNTERS from 1986 to 2021-05-01 Encounter Location Date Provider Diagnosis [facility] [address] [facility] [phone] [place] [address] 11 Apr, 2021 Chandni Avelar IMMUNIZATIONS Vaccine Route Administration Date Status TDAP 0.5mL Boostrix IM Intramuscular Apr 24, 2021 Administere d SOCIAL HISTORY Tobacco Use: Social History Observation [...] REASON FOR REFERRAL No Information VITAL SIGNS No information MEDICATIONS Medication SIG (Take, Route, Frequency, Duration) Notes Start Da te End Date Status Unisom SleepTabs 25 MG 1 tablet at bedtime as needed Orally Once a da y Not-Taking FLUoxetine HCl 10 MG 1 capsule Orally Once a day Active traZODone HCl 50 MG 0.5 tablet at bedtime Orally Once a day Active Camila Allergy 180 MG 1 tablet Orally Once a day Active Omeprazole 20 MG 1 capsule 30 minutes before morning meal Orally On a day Not-Taking Vitamin B6 50 MG 1 tablet Orally Not -Taking Zofran 4 MG 1 tablet Orally every 8 hours PRN for 30 day(s) Apr, Active Aspirin 81 81 MG 1 tablet Orally Once a day Active 27-1 MG 1 tablet Orally Once a day Active PROCEDURES No Information RESULTS No Results REASON FOR VISIT 06/13/21 SURG AUTH MEDICAL (GENERAL) HISTORY Type Description Date Medical History Hypothyroid Medical History Gestational hypertension Medical History anxiety Medical History insomnia Surgical History Left radial fracture repair Surgical History Oral surgery Hospitalization History Childbirth Hospitalization History Surgical related Goals Section No Information Health Concerns No Information MEDICAL EQUIPMENT No Information MENTAL STATUS No Information FUNCTIONAL STATUS No Information ASSESSMENTS No Information PLAN OF TREATMENT Medication Medication Name Sig Start Date Stop Date Zofran 4 MG 1 tablet Orally every 8 hours PRN for 30 day(s) Apr, Next Appt Details Provider Name:Dai Guillen, 2021-04-21 0 03:40:00 PM, [address] [place] [address], [address] [place] [address], [place], [address], Provider Name:Chandni Avelar, 2021-05-22 0 3:20:00 PM, [address] [place] [address], [address] [place] [address], [place], [address], Provider Name:Peewee Suarez, 2021-05-29 03:40:00 PM, [address] [place] [address], [address] [place] [address], [place], [address], Provider Name:Peewee Suarez, 2021-06-05 03:30:00 PM, [address] [place] [address], [place], [address], Provider Name:Chandni Avelar, 2021-06-13 0 7:30:00 AM, [address] [place] [address], [address] [place] [address], [place], [address], Provider Name:Viktoriya Medina, 2021-06-13 0 7:30:00 AM, [address] [place] [address], [address] [place] [address], [place], [address], Provider Name:Chandni Avelar, 2021-06-27 0 2:40:00 PM, [address] [facility] [facility] [facility], , [place], [address], Provider Name:Chandni Avelar, 2021-08-09 1 0:20:00 AM, [address], , [place], [address], Insurance Providers Payer Name Payer Address Payer Phone Insured Name Patient Relati onship to Insured Coverage Start Date Coverage End Date BCBS [place] S[place] PPO [phone] [facility] [place] [facility] [place] [address] DAYANA JACOBO self
--- OUTSIDE RECORDS SUMMARY | 2021-06-13 05:43 | CCD ---
Author Author [facility] [employer] Organization [facility] Address Unknown Phone Unavailable Care Team Providers Care Machinist Outside Name Role Phone Dai Guillen Unavailable PROBLEMS Type Condition ICD9-CM Code [id number] Code Onset Dates Condition S tatus W/U Status Risk SNOMED Code Notes Problem Supervision of other normal Z34.80 Ac tive confirm [id number] ALLERGIES No Known Allergies ENCOUNTERS from 1986 to 2021-05-07 Encounter Location Date Provider Diagnosis [facility] [facility] [phone] [place] [address] Apr, Dai Guillen IMMUNIZATIONS Vaccine Route Administration Date Status TDAP [...] Information RESULTS No Results REASON FOR VISIT decreased FM MEDICAL (GENERAL) HISTORY Type Description Date Medical [...] Provider Name:Dai Guillen, 2021-04-21 0 03:40:00 PM, [address] [place] [address], [address] [place] [address], [place], [address], Provider Name:Chandni Avelar, 2021-05-22 0 3:20:00 PM, [address] [place] [address], [place], [address], Provider Name:Peewee Suarez, 2021-05-29 03:40:00 PM, [address] [place] [address], [address] [place] [address], [place], [address], Provider Name:Peewee Suarez, 2021-06-05 03:30:00 PM, [address] [place] [address], [place], [address], Provider Name:Chandni Avelar, 2021-06-13 0 7:30:00 AM, [address] [place] [address], [place], [address], Provider Name:Viktoriya Medina, 2021-06-13 0 7:30:00 AM, [address] [place] [address], [place], [address], Provider Name:Chandni Avelar, 2021-06-27 0 2:40:00 PM, [address] [facility], , [place], [address], Provider Name:Chandni Avelar, 2021-08-09 1 0:20:00 AM, [address] [facility], , [place], [address], Insurance Providers Payer Name Payer Address Payer Phone Insured Name Patient Relati onship to Insured Coverage Start Date Coverage End Date BCBS [place] PPO [phone] [facility] [place] [facility] [place] [address] DAYANA JACOBO self
--- OUTSIDE RECORDS SUMMARY | 2021-06-13 05:43 | CCD ---
Author Author [facility] Organization [facility] Address Unknown Phone Unavailable Care Team Providers Care Pre Parole Counseling Aide Name Role Phone DeevnDai Villanueva Unavailable PROBLEMS Type Condition ICD9-CM Code [id number] Code Onset Dates Condition S tatus W/U Status Risk SNOMED Code Notes Problem Supervision of other normal Z34.80 Ac tive confirm [id number] ALLERGIES No Known Allergies ENCOUNTERS from 1986 to 2021-04-27 Encounter Location Date Provider Diagnosis [facility] [address] [facility] [phone] [place] [address] Apr, Dai Guillen Encounter for matern al care for low transverse scar from previous delivery O34.211 ; Late vomiting of O21.2 ; Current in third trimester with history of spontaneous during prior O09.293 ; 31 weeks gestation of Z3A.31 and Encounter for immunization Z23 IMMUNIZATIONS Vaccine Route Administration Date Status TDAP [...] FOR REFERRAL No Information VITAL SIGNS Weight 180 lbs Apr, Weight-kg 81.65 kg Apr, Height 65 in Apr, BMI 29.954 kg/m2 Apr, Blood pressure systolic 126 mm Hg Apr, Blood pressure diastolic 76 mm Hg Apr, MEDICATIONS Medication SIG (Take, Route, Frequency, Duration) [...] morning meal Orally On ce a day Not-Taking Vitamin B6 50 MG 1 tablet Orally Not -Taking Zofran 4 MG 1 tablet Orally every 8 hours PRN for 30 day(s) Apr, Active Aspirin 81 81 MG 1 tablet Orally Once a day Active 27-1 MG 1 tablet Orally Once a day Active PROCEDURES No Information RESULTS No Results REASON FOR VISIT 2WK PN MEDICAL (GENERAL) HISTORY Type Description Date [...] Notes Treatment Notes Treatm ent Clinical Notes Apr, Late vomiting of (ICD-10 - O21.2) Apr, Encounter for maternal care for low transverse scar from previous delivery (ICD-10 - O34.211) Apr, Current in third t rimester with history of spontaneous during prior (ICD-10 - O09.293) Apr, 31 weeks gestation of (ICD-10 - Z3A.31 ) Apr, Encounter for immunization (ICD-10 - Z23) PLAN OF TREATMENT Medication Medication Name Sig Start Date Stop Date Zofran 4 MG 1 tablet Orally every 8 hours PRN for 30 day(s) Apr, Treatment Notes Test Name Order Date Imm: Boostrix 0.5mL IM TDAP 2021-04-24 Next Appt Details 2-3 weeks Reason: Provider Name:Dai Guillen, 2021-04-21 0 03:40:00 PM, [address] [facility], , [place], [address], Provider Name:Chandni Victor M Benjaminn, 2021-05-22 0 3:20:00 PM, [address] [place] [address], , [place], [address], Provider Name:Peewee Suarez, 2021-05-29 03:40:00 PM, [address] [place] [address], , [place], [address], Provider Name:Peewee Suarez, 2021-06-05 03:30:00 PM, [address] [place] [address], , [place], [address], Provider Name:Chandni Victor M Avelar, 2021-06-13 0 7:30:00 AM, [address] [place] [address], , [place], [address], Provider Name:Viktoriya Medina, 2021-06-13 0 7:30:00 AM, [address] [place] [address], , [place], [address], Follow Up:2-3 weeksPrenatal Insurance Providers Payer Name Payer Address Payer Phone Insured Name Patient Relati onship to Insured Coverage Start Date Coverage End Date BCBS [place] PPO [id number] [facility] [place] [address] DAYANA JACOBO self
--- OUTSIDE RECORDS SUMMARY | 2021-06-13 05:43 | CCD ---
Author Author [facility] Address Unknown Phone Unavailable Care Team Providers Care Wire Stitcher Operator Name Role Phone CLINT-LEON, FLACO DO Unavailable Unavailable CLINT-LEON, FLACO DO Unavailable Unavailable CLINT-LEON, FLACO DO Unavailable Unavailable CLINT-LEON, FLACO DO Unavailable Unavailable CLINT-LEON, FLACO DO Unavailable Unavailable CLINT-LEON, FLACO DO Unavailable Unavailable CLINT-LEON, FLACO DO Unavailable Unavailable CLINT-LEON, FLACO DO Unavailable Unavailable CLINT-LEON, FLACO DO Unavailable Unavailable CLINT-LEON, FLACO DO Unavailable Unavailable CLINT-LEON, FLACO DO Unavailable Unavailable CLINT-LEON, FLACO DO Unavailable Unavailable CLINT-LEON, FLACO DO Unavailable Unavailable CLINT-LEON, FLACO DO Unavailable Unavailable CLINT-LEON, FLACO DO Unavailable Unavailable CLINT-LEON, FLACO DO Unavailable Unavailable CLINT-LEON, FLACO DO Unavailable Unavailable CLINT-LEON, FLACO DO Unavailable Unavailable CLINT-LEON, FLACO DO Unavailable Unavailable CLINT-LEON, FLACO DO Unavailable Unavailable CLINT-ELON, FLACO DO Unavailable Unavailable CLINT-LEON, FLACO DO Unavailable Unavailable CLINT-LEON, FLACO DO Unavailable Unavailable CLINT-LEON, FLACO DO Unavailable Unavailable CLINT-LEON, FLACO DO Unavailable Unavailable CLINT-LEON, FLACO DO Unavailable Unavailable CLINT-LEON, FLACO DO Unavailable Unavailable CLINT-LEON, FLACO DO Unavailable Unavailable CLINT-LEON, FLACO DO Unavailable Unavailable CLINT-LEON, FLACO DO Unavailable Unavailable CLINT-LEON, FLACO DO Unavailable Unavailable CLINT-LEON, FLACO DO Unavailable Unavailable CLINT-LEON, FLACO DO Unavailable Unavailable CLINT-LEON, FLACO DO Unavailable Unavailable CLINT-LEON, FLACO DO Unavailable Unavailable CLINT-LEON, FLACO DO Unavailable Unavailable CLINT-LEON, FLACO DO Unavailable Unavailable CLINT-LEON, FLACO DO Unavailable Unavailable CLINT-LEON, FLACO DO Unavailable Unavailable CLINT-LEON, FLACO DO Unavailable Unavailable CLINT-LEON, FLACO DO Unavailable Unavailable CLINT-LEON, FLACO DO Unavailable Unavailable CLINT-LEON, FLACO DO Unavailable Unavailable CLINT-LEON, FLACO DO Unavailable Unavailable CLINT-LEON, FLACO DO Unavailable Unavailable CLINT-LEON, FLACO DO Unavailable Unavailable CLINT-LEON, FLACO DO Unavailable Unavailable CLINT-LEON, FLACO DO Unavailable Unavailable CLINT-LEON, FLACO DO Unavailable Unavailable CLINT-LEON, FLACO DO Unavailable Unavailable CLINT-LEON, FLACO DO Unavailable Unavailable CLINT-LEON, FLACO DO Unavailable Unavailable CLINT-LEON, FLACO DO Unavailable Unavailable CLINT-LEON, FLACO DO Unavailable Unavailable CLINT-LEON, FLACO DO Unavailable Unavailable CLINT-LEON, FLACO DO Unavailable Unavailable CLINT-LEON, FLACO DO Unavailable Unavailable CLINT-LEON, FLACO DO Unavailable Unavailable CLINT-LEON, FLACO DO Unavailable Unavailable CLINT-LEON, FLACO DO Unavailable Unavailable CLINT-LEON, FLACO DO Unavailable Unavailable CLINT-LEON, FLACO DO Unavailable Unavailable CLINT-LEON, FLACO DO Unavailable Unavailable CLINT-LEON, FLACO DO Unavailable Unavailable CLINT-LEON, FLACO DO Unavailable Unavailable CLINT-LEON, FLACO DO Unavailable Unavailable CLINT-LEON, FLACO DO Unavailable Unavailable CLINT-LEON, FLACO DO Unavailable Unavailable CLINT-LEON, FLACO DO Unavailable Unavailable CLINT-LEON, FLACO DO Unavailable Unavailable CLINT-LEON, FLACO DO Unavailable Unavailable CLINT-LEON, FLACO DO Unavailable Unavailable CLINT-LEON, FLACO DO Unavailable Unavailable CLINT-LEON, FLACO DO Unavailable Unavailable CLINT-LEON, FLACO DO Unavailable Unavailable CLINT-LEON, FLACO DO Unavailable Unavailable CLINT-LEON, FLACO DO Unavailable Unavailable CLINT-LEON, FLACO DO Unavailable Unavailable CLINT-LEON, FLACO DO Unavailable Unavailable CLINT-LEON, FLACO DO Unavailable Unavailable CLINT-LEON, FLACO DO Unavailable Unavailable CLINT-LEON, FLACO DO Unavailable Unavailable CLINT-LEON, FLACO DO Unavailable Unavailable CLINT-LEON, FLACO DO Unavailable Unavailable Re-disclosure Warning The records that you are about to access may contain information from federally-assisted alcohol or drug abuse programs. If such information is present, then the following federally mandated warning applies: This information has been disclosed to you from records protected by federal confidentiality rules (42 CFR part 2). The federal rules prohibit you from making any further disclosure of this information unless further disclosure is expressly permitted by the written consent of the person to whom it pertains or as otherwise permitted by 42 CFR part 2. A general authorization for the release of medical or other information is NOT sufficient for this purpose. The Federal rules restrict any use of the information to criminally investigate or prosecute any alcohol or drug abuse patient.The records that you are about to access may contain highly sensitive health information, the redisclosure of which is protected by Article 27-F of the [facility] Public Health law. If you continue you may have access to information: Regarding HIV / AIDS; Provided by facilities licensed or operated by the [facility] Office of Mental Health; or Provided by the [facility] Office for People With Developmental Disabilities. If such information is present, then the following [facility] mandated warning applies: This information has been disclosed to you from confidential records which are protected by state law. State law prohibits you from making any further disclosure of this information without the specific written consent of the person to whom it pertains, or as otherwise permitted by law. Any unauthorized further disclosure in violation of state law may result in a fine or intermediate sentence or both. A general authorization for the release of medical or other information is NOT sufficient authorization for further disc losure. Family History Family Member Name Family Member Gender Family Member Status Date o f Status Description Data Source(s) Unknown Unknown Problem MEDENT ([facility]) Unknown Female Problem MEDENT ([facility]) Unknown Female Problem MEDENT ([facility]) Encounters Encounter Providers Location Date Indications Data Source(s ) ( ESTOB) enter Est OB [address] [place] [address] 05/29/2021 12:00:00 AM EST eCW1 ([facility]) ( ESTOB) [facility] Est OB [address] [place] [address] 05/22/2021 12:00:00 AM EDT eCW1 ([facility]) Unknown [address] [facility] [address] 05/07/2021 12:00:00 AM EDT eCW1 ([facility]) Unknown [address] [facility] [address] 04/30/2021 12:00:00 AM EDT eCW1 ([facility]) ( ESTOB) enter Est OB [address] [place] [address] 04/24/2021 12:00:00 AM EDT eCW1 ([facility]) ( ESTOB) enter Est OB [address] [place] [address] 03/29/2021 12:00:00 AM EDT eCW1 ([facility]) ( ESTOB) enter Est OB [address] [place] [address] 03/01/2021 12:00:00 AM EDT eCW1 ([facility]) (WC ESTOB) enter Est OB [address] [place] [address] 01/31/2021 12:00:00 AM EDT eCW1 ([facility]) (WC ESTOB) [facility] [address] [place] [address] 01/02/2021 12:00:00 AM EDT eCW1 ([facility]) ( ESTOB) [facility] Est OB [address] [place] [address] 12/05/2020 12:00:00 AM EDT eCW1 ([facility]) ( ESTOB) [facility] Est OB [address] [place] [address] 11/07/2020 12:00:00 AM EDT eCW1 ([facility]) Outpatient Attender: FLACO LEONE DO [facility] 05/29/2020 03:00:00 PM EST MEDENT ([facility]) Immunizations Vaccine Date Status Description Data Source(s) New in 2011. IIV4 05/09/2021 10:19:00 AM EDT completed [facility] New in 2011. IIV4 05/09/2021 10:19:00 AM EDT completed [facility]) COVID-19 VACCINE Pfizer 04/26/2021 12:00:00 AM EDT completed [facility] Vaccine Series Complete: YESThis Data wa s Submitted to [facility] Via [facility]. Tdap 04/24/2021 03:54:00 PM EDT completed e CW1 ([facility]) Tdap 04/24/2021 03:54:00 PM EDT completed e CW1 ([facility]) Tdap 04/24/2021 03:54:00 PM EDT completed e CW1 ([facility]) Tdap 04/24/2021 03:54:00 PM EDT completed e CW1 ([facility]) Tdap 04/24/2021 03:54:00 PM EDT completed e CW1 ([facility]) COVID-19 VACCINE Pfizer 08/01/2020 12:00:00 AM EST completed [facility] Vaccine Series Complete: YESThis Data wa s Submitted to [facility]. COVID-19 VACCINE Pfizer 07/11/2020 12:00:00 AM EST completed [facility] Vaccine Series Complete: NOThis Data was Submitted to [facility]. Medications Medication Brand Name Start Date Product Form Dose Route Admi nistrative Instructions Pharmacy Instructions Status Indications Reaction Description Data Source(s) Ondansetron 4 MG Oral Tablet [Zofran] Zofran 4 MG Zofran 4 M G 04/24/2021 12:00:00 AM EDT 1.0 {tablet} active Zo ramsey 4 MG [facility]CW[facility]) Ondansetron 4 MG Oral Tablet [Zofran] Zofran 4 MG Zofran 4 M G 04/24/2021 12:00:00 AM EDT 1.0 {tablet} active Zo ramsey 4 MG eCW1 [facility]) Ondansetron 4 MG Oral Tablet [Zofran] Zofran 4 MG Zofran 4 M G 04/24/2021 12:00:00 AM EDT 1.0 {tablet} active Zo ramsey 4 MG eCW1 [facility]) Ondansetron 4 MG Oral Tablet [Zofran] Zofran 4 MG Zofran 4 M G 04/24/2021 12:00:00 AM EDT 1.0 {tablet} active Zo ramsey 4 MG eCW1 [facility]) 4 mg 04/24/2021 12:00:00 AM EDT tablet 30 TAKE ONE TABLET BY MOUTH EVERY 8 HOURS NEEDED TAKE ONE TABLET BY MOUTH EVERY 8 HOURS NEEDED SOLD: 04/25/2021 [facility] Ondansetron 4 MG Oral Tablet [Zofran] Zofran 4 MG Zofran 4 M G 04/24/2021 12:00:00 AM EDT 1.0 {tablet} active Zo ramsey 4 MG eCW1 [facility]) 10 mg 01/02/2021 12:00:00 AM EDT capsule 90 TAKE ONE CAPSULE BY MOUTH EVERY MORNING TAKE ONE CAPSULE BY MOUTH EVERY MORNING SOLD: 01/10/2021 [facility] 50 mg 01/02/2021 12:00:00 AM EDT tablet 180 TAKE ONE TO TWO TABLETS BY MOUTH EVERY EVENING TAKE ONE TO TWO TABLETS BY MOUTH EVERY EVENING SOLD: [facility] 10 mg 09/26/2020 12:00:00 AM EST capsule 90 TAKE ONE CAPSULE BY MOUTH EVERY DAY IN THE MORNING TAKE ONE CAPSULE BY MOUTH EVERY DAY IN THE MORNING BOLIVAR [facility] 50 mg 09/26/2020 12:00:00 AM EST tablet 180 TAKE ONE TO TWO TABLETS BY MOUTH EVERY DAY IN THE EVENING TAKE ONE TO TWO TABLETS BY MOUTH EVERY D AY IN THE EVENING SOLD: 10/03/2020 [facility] Covid-19 vaccine, Unspecified 08/01/2020 12:00:00 AM EST completed MEDENT ([facility]) Medication administered onsite Covid-19 vaccine, Unspecified 07/11/2020 12:00:00 AM EST completed MEDENT ([facility]) Medication administered onsite 10 mg 06/28/2020 12:00:00 AM EST capsule 90 TAKE ONE CAPSULE BY MOUTH EVERY MORNING TAKE ONE CAPSULE BY MOUTH EVERY MORNING SOLD: 07/07/2020 [facility] 50 mg 06/28/2020 12:00:00 AM EST tablet 180 TAKE 1-2 TABLETS BY MOUTH EVERY EVENING TAKE 1-2 TABLETS BY MOUTH EVERY EVENING SOLD: 07/07/2020 [facility] 10 mg 05/09/2020 12:00:00 AM EDT tablet 10 TAKE ONE TABLET BY MOUTH EVERY DAY TAKE ONE TABLET BY MOUTH EVERY DAY SOLD: 05/09/2020 [facility] 2.5 mg 05/09/2020 12:00:00 AM EDT tablet 20 TAKE TWO TABLETS BY MOUTH ONCE A DAY DIRECTED DAYS 3-7 OF CYCLE TAKE TWO TABLETS BY MOUTH ONCE A DAY DIRECTED DAYS 3-7 OF CYCLE SOLD: 10/03/2020 [facility] 2.5 mg 05/09/2020 12:00:00 AM EDT tablet 20 TAKE TWO TABLETS BY MOUTH ONCE A DAY DIRECTED DAYS 3-7 OF CYCLE TAKE TWO TABLETS BY MOUTH ONCE A DAY DIRECTED DAYS 3-7 OF CYCLE SOLD: 08/07/2020 [facility] 2.5 mg 05/09/2020 12:00:00 AM EDT tablet 20 TAKE TWO TABLETS BY MOUTH ONCE A DAY DIRECTED DAYS 3-7 OF CYCLE TAKE TWO TABLETS BY MOUTH ONCE A DAY DIRECTED DAYS 3-7 OF CYCLE SOLD: 05/09/2020 [facility] 10 mg 04/13/2020 12:00:00 AM EDT capsule 90 TAKE ONE CAPSULE BY MOUTH EVERY MORNING TAKE ONE CAPSULE BY MOUTH EVERY MORNING SOLD: 04/16/2020 [facility] buspirone hydrochloride 10 MG Oral Tablet BUSPIRONE HCL 04/13/2020 12:00:00 AM EDT tablet 180 TAKE ONE TABLET BY MOUTH TWI CE A DAY TAKE ONE TABLET BY MOUTH TWICE A DAY SOLD: 04/16/2020 [facility] Insurance Providers Payer name Policy type / Coverage type Policy ID Covered libertarian ID Covered libertarian's relationship to carpenter Policy Carpenter [facility] Commercial VYS [id number] Self VY S [id number] [facility] U/W Commercial VYS [id number] Self VY S [id number] [facility] U/W Commercial VYS [id number] Self VY S [id number] [facility] U/W Commercial VYS [id number] Self VY S [id number] [facility] U/W DoYouRemember VYS [id number] Self VY S [id number] [facility] U/W Commercial VYS [id number] Self VY S [id number] [facility] U/W Commercial VYS [id number] Self VY S [id number] [facility] U/W Commercial VYS [id number] Self VY S [id number] [employer] [place]/307 [id number] SP [id number] [employer] [place]/307 [id number] SP [id number] [facility] ([facility]) [id number] Self [id number] [employer] [place] 302/307 [id number] SP [id number] [employer] [place] 306/[id number] SP [id number] [employer] [place] PPO 302/307 [id number] SP [id number] [employer] [place] PPO 302/307 [id number] SP [id number] SELF PAY SELF PAY ONLY [id number] SP [id number] [facility] ([facility]) [id number] Self [id number] [facility] ([facility]) [id number] Self [id number] [facility] B [id number] S VYS [id number] [employer] [place] 306/806 [id number] SP [id number] [facility] ([facility]) [id number] Self [id number] Problems, Conditions, and Diagnoses Code Display Name Description Problem Type Effective Dates Data Source(s) Z34.80 care Supervision of other normal Camilla garcia 11/06/2020 12:00:00 AM EDT eCW[facility]) Surgeries/Procedures No Information Results ID Date Data Source [id number] 06/08/2021 11:55:00 AM EST MEDENT ([facility]) Name Value Range Interpretation Code Description Data Cindy rce(s) Supporting Document(s) Coronavirus 2019 Nasopharygeal Laboratory test result MEDENT ([facility]) ASSAY INFORMATION: Real Time RT-PCR NOTE: The COVID-19 assay has been cleared by the U.S. Food and Drug Administration under the Emergency Use Authorization (EUA). [facility] are designated as high complexity laboratories by the Clinical Laboratory Improvement Amendments of 1988(CLIA) and are qualified to perform this test. Not Detected ID Date Data Source GROUP B STREP CULTURE 05/29/2021 12:00:00 AM EST eCW1 ([facility]) Name Value Range Interpretation Code Description Data Cindy rce(s) Supporting Document(s) GROUP B STREP CULTURE eCW1 ([facility]) ID Date Data Source [id number] 03/30/2021 05:00:00 PM EDT [facility] Name Value Range Interpretation Code Description Data Cindy rce(s) Supporting Document(s) SARS coronavirus 2 RNA [Presence] in Res piratory specimen by KELSEY with probe detection NEGATIVE [facility] This lab was ordered by [facility] a nd reported by [facility]. ID Date Data Source Glucose Challenge Test 1 Hour 03/14/2021 12:00:00 AM EDT eCW 1 ([facility]) Name Value Range Interpretation Code Description Data Cindy rce(s) Supporting Document(s) 97 LESS THAN 140 GLUCOSE CHALLENGE TEST 1 HOUR eCW1 ([facility]) ID Date Data Source FREE T4 & TSH PANEL 03/14/2021 12:00:00 AM EDT eCW1 [facility] Name Value Range Interpretation Code Description Data Cindy rce(s) Supporting Document(s) 2.450 0.358-3.740 THYROID STIMULATING HORM ONE eCW1 ([facility]) 0.88 0.76-1.46 FREE T4 eCW1 ([facility]) ID Date Data Source CBC - Complete Blood Count 03/14/2021 12:00:00 AM EDT eCW1 ( [facility]) Name Value Range Interpretation Code Description Data Cindy rce(s) Supporting Document(s) 13.1 4.0-10.0 WHITE BLOOD COUNT eCW1 ([facility]) 4.12 4.00-5.40 RED BLOOD COUNT eCW1 ([facility]) 38.7 36.0-47.0 HEMATOCRIT eCW1 ([facility]) 13.0 12.0-15.5 HEMOGLOBIN eCW1 ([facility]) 31.6 27.0-33.0 MEAN CORPUSCULAR HEMOGLOB IN eCW1 ([facility]) 33.6 32.0-36.5 MEAN CORPUSCULAR HGB CONC eCW1 ([facility]) 93.9 80.0-96.0 MEAN CORPUSCULAR VOLUME e CW1 ([facility]) 13.2 11.5-14.5 RED CELL DISTRIBUTION WID TH eCW1 ([facility]) 216 150-450 PLATELET COUNT, AUTOMATED eCW1 ([facility]) ID Date Data Source Type and Screen (D Rh Antibody Screen) 03/14/2021 12:00:00 A M EDT eCW1 ([facility]) Name Value Range Interpretation Code Description Data Cindy rce(s) Supporting Document(s) NEGATIVE AB SCREEN (INDIRECT COOMB S)VIS eCW1 ([facility]) A POSITIVE BLOOD TYPE eCW1 ([facility]) ID Date Data Source [id number] 03/13/2021 12:00:00 AM EDT [facility] Name Value Range Interpretation Code Description Data Cindy rce(s) Supporting Document(s) SARS-CoV2 Rapid Antigen Negative [facility] by [facility] and reported by [facility]. ID Date Data Source HBSAG 11/07/2020 12:00:00 AM EDT eCW1 [facility] Name Value Range Interpretation Code Description Data Cindy rce(s) Supporting Document(s) NEGATIVE NEGATIVE HBsAg eCW1 ([facility]) ID Date Data Source HEPATITIS C ANTIBODY INDEX 11/07/2020 12:00:00 AM EDT eCW1 ( [facility]) Name Value Range Interpretation Code Description Data Cindy rce(s) Supporting Document(s) < 0.0 <0.8 HEPATITIS C VIRUS SE IND EX eCW1 ([facility]) ID Date Data Source URINE CULTURE 11/07/2020 12:00:00 AM EDT eCW1 [facility] Name Value Range Interpretation Code Description Data Cindy rce(s) Supporting Document(s) URINE CULTURE eCW1 ([facility]) ID Date Data Source RUBELLA IMMUNE STATUS IgG 11/07/2020 12:00:00 AM EDT eCW1 ([facility]) Name Value Range Interpretation Code Description Data Cindy rce(s) Supporting Document(s) IMMUNE IMMUNE RUBELLA IgG QUALITATIVE eCW1 ( [facility]) ID Date Data Source SYPHILIS ANTIBODY (RPR SCREEN) 11/07/2020 12:00:00 AM EDT eC W1 ([facility]) Name Value Range Interpretation Code Description Data Cindy rce(s) Supporting Document(s) NONREACTIVE NONREACTIVE SYPHILIS eCW1 ([facility]) ID Date Data Source [id number] 11/07/2020 12:00:00 AM EDT eCW1 [facility] Name Value Range Interpretation Code Description Data Cindy rce(s) Supporting Document(s) HIV 1&2 ANTIBODY SCREEN eCW1 ( [facility]) ID Date Data Source Type and Screen Prenatal1 11/07/2020 12:00:00 AM EDT eCW1 ([facility]) Name Value Range Interpretation Code Description Data Cindy rce(s) Supporting Document(s) NEGATIVE AB SCREEN PNP1 GEL (VIS) eCW1 ([facility]) ID Date Data Source [id number] 08/04/2020 10:00:00 AM EST [facility] Name Value Range Interpretation Code Description Data Cindy rce(s) Supporting Document(s) SARS coronavirus 2 RNA Not Detected [facility] This lab was ordered by [facility] and reported by [facility]. ID Date Data Source [id number] 06/14/2020 03:00:00 PM EST [facility] Name Value Range Interpretation Code Description Data Cindy rce(s) Supporting Document(s) SARS coronavirus 2 RNA [facility] This lab was ordered by [facility] and reported by [facility]. Procedure Social History Code Duration Value Status Description Data Source(s ) Smoking 06/05/2021 12:00:00 AM EST Never Smoker completed Never S moker eCW1 ([facility]) Smoking 06/01/2021 12:00:00 AM EST Never Smoker completed Never S moker eCW1 ([facility]) Smoking 05/07/2021 12:00:00 AM EDT Never Smoker completed Never S moker eCW1 ([facility]) Smoking 04/11/2021 12:00:00 AM EDT Never Smoker completed Never S moker eCW1 ([facility]) Smoking 04/11/2021 12:00:00 AM EDT Never Smoker completed Never S moker eCW1 ([facility]) Smoking 03/28/2021 12:00:00 AM EDT Never Smoker completed Never S moker eCW1 ([facility]) Smoking 02/28/2021 12:00:00 AM EDT Never Smoker completed Never S moker eCW1 ([facility]) Smoking 01/29/2021 12:00:00 AM EDT Never Smoker completed Never S moker eCW1 ([facility]) Smoking 01/02/2021 12:00:00 AM EDT Never Smoker completed Never S moker eCW1 ([facility]) Smoking 12/05/2020 12:00:00 AM EDT Never Smoker completed Never S moker eCW1 ([facility]) Smoking 11/07/2020 12:00:00 AM EDT Never Smoker completed Never S moker eCW1 ([facility]) Smoking 05/29/2020 12:00:00 AM EST Patient has never smoked co mpleted Patient has never smoked MEDENT ([facility]) Vital Signs ID Date Data Source UNK Name Value Range Interpretation Code Description Data Source(s) Body weight 186.2 [lb_av] 186.2 [lb_av] eCW1 ([facility]) Body height 65 [in_i] 65 [in_i] eCW[facility] Body mass index (BMI) [Ratio] 30.985 kg/m2 30.9 85 kg/m2 eCW1 [facility]) Systolic blood pressure 124 mm[Hg] 124 mm[Hg] e CW1 ([facility]) Diastolic blood pressure 82 mm[Hg] 82 mm[Hg] eCW1 ([facility]) Body weight 184 [lb_av] 184 [lb_av] eCW1 ([facility]) Body weight 83.46 kg 83.46 kg eCW1 [facility] Body height 65 [in_i] 65 [in_i] eCW1 [facility] Body mass index (BMI) [Ratio] 30.619 kg/m2 30.6 19 kg/m2 eCW1 ([facility]) Systolic blood pressure 110 mm[Hg] 110 mm[Hg] e CW1 ([facility]) Diastolic blood pressure 74 mm[Hg] 74 mm[Hg] eCW1 ([facility]) Body weight 180 [lb_av] 180 [lb_av] eCW1 ([facility]) Body weight 81.65 kg 81.65 kg eCW1 [facility] Body height 65 [in_i] 65 [in_i] eCW1 [facility] Body mass index (BMI) [Ratio] 29.954 kg/m2 29.9 54 kg/m2 eCW1 ([facility]) Systolic blood pressure 126 mm[Hg] 126 mm[Hg] e CW1 ([facility]) Diastolic blood pressure 76 mm[Hg] 76 mm[Hg] eCW1 ([facility] Body weight 176.6 [lb_av] 176.6 [lb_av] eCW1 ([facility]) Body weight 80.1 kg 80.1 kg eCW1 [facility] Body height 65 [in_i] 65 [in_i] eCW1 [facility] Body mass index (BMI) [Ratio] 29.388 kg/m2 29.3 88 kg/m2 eCW1 ([facility]) Systolic blood pressure 120 mm[Hg] 120 mm[Hg] e CW1 ([facility]) Diastolic blood pressure 70 mm[Hg] 70 mm[Hg] [facility] Body weight 174.2 [lb_av] 174.2 [lb_av] eCW1 ([facility]) Body height 65 [in_i] 65 [in_i] eCW[facility] Body mass index (BMI) [Ratio] 28.988 kg/m2 28.9 88 kg/m2 [facility] Systolic blood pressure 118 mm[Hg] 118 mm[Hg] e CW1 ([facility]) Diastolic blood pressure 76 mm[Hg] 76 mm[Hg] eCW1 [facility] Body weight 167.6 [lb_av] 167.6 [lb_av] eCW1 ([facility]) Body height 65 [in_i] 65 [in_i] eCW1 [facility] Body mass index (BMI) [Ratio] 27.89 kg/m2 27.89 kg/m2 eCW1 [facility]) Systolic blood pressure 114 mm[Hg] 114 mm[Hg] e CW1 ([facility]) Diastolic blood pressure 68 mm[Hg] 68 mm[Hg] eCW1 [facility] Systolic blood pressure 110 mm[Hg] 110 mm[Hg] e CW1 ([facility]) Body weight 164.4 [lb_av] 164.4 [lb_av] eCW1 ([facility]) Body height 65 [in_i] 65 [in_i] eCW1 [facility] Body mass index (BMI) [Ratio] 27.35 kg/m2 27.35 kg/m2 eCW1 [facility]) Diastolic blood pressure 68 mm[Hg] 68 mm[Hg] eCW1 [facility]) Systolic blood pressure 120 mm[Hg] 120 mm[Hg] e CW1 ([facility]) Body weight 158 [lb_av] 158 [lb_av] eCW1 ([facility]) Diastolic blood pressure 72 mm[Hg] 72 mm[Hg] eCW1 [facility] Body height 65 [in_i] 65 [in_i] eCW1 [facility] Body mass index (BMI) [Ratio] 26.293 kg/m2 26.2 93 kg/m2 eCW1 [facility]) Systolic blood pressure 124 mm[Hg] 124 mm[Hg] e CW1 ([facility]) Body weight 156.8 [lb_av] 156.8 [lb_av] eCW1 ([facility]) Body height 65 [in_i] 65 [in_i] eCW1 [facility] Body mass index (BMI) [Ratio] 26.093 kg/m2 26.0 93 kg/m2 eCW1 [facility]) Diastolic blood pressure 84 mm[Hg] 84 mm[Hg] eCW1 [facility]) Systolic blood pressure 102 mm[Hg] 102 mm[Hg] M EDENT ([facility]) Diastolic blood pressure 80 mm[Hg] 80 mm[Hg] MEDENT ([facility]) Body height 64.2 [in_i] 64.2 [in_i] MEDENT ([facility]) 5'4.20" Body weight 151.50 [lb_av] 151.50 [lb_av] MEDEN T ([facility]) Body mass index (BMI) [Ratio] 25.8 kg/m2 25.8 k g/m2 MEDENT ([facility]) Heart rate 97 /min 97 /min MEDENT ([facility]) Respiratory rate 16 /min 16 /min MEDENT ( [facility]) Body temperature 97.9 [degF] 97.9 [degF] MEDENT ([facility]) Oxygen saturation in Arterial blood by Pulse oximetry 98 % 98 % MEDENT ([facility]) [place] body weight 120 [lb_av] 120 [lb_av] MEDEN T ([facility]) Patient Treatment Plan of Care Planned Activity Planned Date Details Description Data Source (s) Ondansetron 4 MG Oral Tablet [Zofran] 04/24/2021 12:00:00 AM EDT [facility] Ondansetron 4 MG Oral Tablet [Zofran] 04/24/2021 12:00:00 AM EDT eCW1 [facility]) Ondansetron 4 MG Oral Tablet [Zofran] 04/24/2021 12:00:00 AM EDT eCW1 [facility])
--- OUTSIDE RECORDS SUMMARY | 2021-06-13 05:43 | CCD ---
Author Author [facility] Organization [facility] Address Unknown Phone Unavailable Care Team Providers Care Fitting Supervisor Name Role Phone Peewee Suarez Unavailable PROBLEMS Type Condition ICD9-CM Code [id number] Code Onset Dates Condition S tatus W/U Status Risk SNOMED Code Notes Problem Supervision of other normal Z34.80 Ac tive confirm [id number] ALLERGIES No Known Allergies ENCOUNTERS from 1985 to 2021-06-06 Encounter Location Date Provider Diagnosis [facility] [address] [facility] [phone] [place] [address] May, Peewee Suarez Encounter for superv ision of other normal in third trimester Z34.83 and 35 weeks gestation of Z3A.35 IMMUNIZATIONS Vaccine Route Administration Date Status TDAP 0.5mL Boostrix IM Intramuscular Apr 24, 2021 Administere d Influenza 6mo & up Fluzone IM Intramuscular May 09, 2021 Admi nistered SOCIAL HISTORY Tobacco Use: Social History Observation [...] FOR REFERRAL No Information VITAL SIGNS Weight 186.2 lbs May, Height 65 in May, BMI 30.985 kg/m2 May, Blood pressure systolic 124 mm Hg May, Blood pressure diastolic 82 mm Hg May, MEDICATIONS Medication SIG (Take, Route, Frequency, Duration) Notes Start Da te End Date Status Omeprazole 20 MG 1 capsule 30 minutes before morning meal Orally On ce a day Active Pepcid 20 MG 1 tablet at bedtime as needed Orally Once a day Active Tums 500 MG 1 tablet Orally Once a day Active Vitamin B6 50 MG 1 tablet Orally Not -Taking Zofran 4 MG 1 tablet Orally every 8 hours PRN for 30 day(s) Apr, Active Camila Allergy 180 MG 1 tablet Orally Once a day Not-Taking Omeprazole 20 MG 1 capsule 30 minutes before morning meal Orally On ce a day Not-Taking Aspirin 81 81 MG 1 tablet Orally Once a day Active traZODone HCl 50 MG 0.5 tablet at bedtime Orally Once a day Active 27-1 MG 1 tablet Orally Once a day Active Unisom SleepTabs 25 MG 1 tablet at bedtime as needed Orally Once a da y Not-Taking PROCEDURES No Information RESULTS Component Value Reference Range GROUP B STREP CULTURE Reviewed date:06/05/2021 15:56:24 Interpretation: Performing Lab:[facility], [facility] [address] [facility] [address] , ,[place] [address] REASON FOR VISIT 1 WK PN MEDICAL (GENERAL) HISTORY Type Description [...] Notes Treatment Notes Treatm ent Clinical Notes May, Encounter for supervision of other normal in third trimester (ICD-10 - Z34.83) May, 35 weeks gestation of (ICD-10 - Z3A.35 ) PLAN OF TREATMENT Next Appt Details Provider Name:Chandni Avelar, 2021-06-13 0 7:30:00 AM, [address] [facility], , [place], [address], Provider Name:Viktoriya Medina, 2021-06-13 0 7:30:00 AM, [address] [facility], , [place], [address], Provider Name:Chandni Avelar, 2021-06-27 0 2:40:00 PM, [address] [facility], , [place], [address], Provider Name:Chandni Avelar, 2021-08-10 1 1:40:00 AM, [address] [facility], , [place], [address], Insurance Providers Payer Name Payer Address Payer Phone Insured Name Patient Relati onship to Insured Coverage Start Date Coverage End Date BCBS [place] PPO [phone] [facility] [place] [facility] [place] [id number] DAYANA JACOBO self
--- OUTSIDE RECORDS SUMMARY | 2021-06-13 05:43 | CCD ---
Author Author [facility] Organization [facility] Address Unknown Phone Unavailable Care Team Providers Care Stiff Neck Loader Name Role Phone Julia Gonzales Unavailable PROBLEMS Type Condition ICD9-CM Code [id number]-LK Code Onset Dates Condition S tatus W/U Status Risk SNOMED Code Notes Problem Supervision of other normal Z34.80 Ac tive confirm [id number] ALLERGIES No Known Allergies ENCOUNTERS from 1986 to 2021-03-19 Encounter Location Date Provider Diagnosis [facility] [address] [facility] [phone] [place] [address] Feb, Julia Gonzales Maternal care due to low transverse uterine scar from previous delivery O34.211 ; History of pre-eclampsia in prior , currently in second trimester O09.292 and 24 weeks gestation of Z3A.24 IMMUNIZATIONS No Information SOCIAL HISTORY Tobacco Use: [...] FOR REFERRAL No Information VITAL SIGNS Weight 174.2 lbs Feb, Height 65 in Feb, BMI 28.988 kg/m2 Feb, Blood pressure systolic 118 mm Hg Feb, Blood pressure diastolic 76 mm Hg Feb, MEDICATIONS Medication SIG (Take, Route, Frequency, Duration) Notes Start Da te End Date Status traZODone HCl 50 MG 0.5 tablet at bedtime Orally Once a day Active Camila Allergy 180 MG 1 tablet Orally Once a day Active Unisom SleepTabs 25 MG 1 tablet at bedtime as needed Orally Once a da y Not-Taking FLUoxetine HCl 10 MG 1 capsule Orally Once a day Active 27-1 MG 1 tablet Orally Once a day Active Vitamin B6 50 MG 1 tablet Orally Not -Taking Aspirin 81 81 MG 1 tablet Orally Once a day Active PROCEDURES No Information RESULTS Component Value Reference Range Type and Screen (D Rh Antibody Screen) Reviewed date:03/14/2021 15:45:23 Interpretation: Performing Lab:[facility] [address] [place] [address] , ,[place] [address] BLOOD TYPE A POSITIVE AB SCREEN (INDIRECT FIDEL)VIS NEGATIVE CBC - Complete Blood Count Reviewed date:03/14/2021 15:45:07 Interpretation: Performing Lab:[facility] [address] [place] [address] , ,[place] [address] WHITE BLOOD COUNT 13.1 4.0-10.0 RED BLOOD COUNT 4.12 4.00-5.40 HEMOGLOBIN 13.0 12.0-15.5 HEMATOCRIT 38.7 36.0-47.0 MEAN CORPUSCULAR VOLUME 93.9 80.0-96.0 MEAN CORPUSCULAR HEMOGLOBIN 31.6 27.0-33.0 MEAN CORPUSCULAR HGB CONC 33.6 32.0-36.5 RED CELL DISTRIBUTION WIDTH 13.2 11.5-14.5 PLATELET COUNT, AUTOMATED 216 150-450 FREE T4 & TSH PANEL Reviewed date:03/14/2021 15:45:31 Interpretation: Performing Lab:[facility] [address] [place] [address] , ,[place] [address] THYROID STIMULATING HORMONE 2.450 0.358-3.740 FREE T4 0.88 0.76-1.46 Glucose Challenge Test 1 Hour Reviewed date:03/14/2021 15:45:27 Interpretation: Performing Lab:[facility] [address] [place] [address] , ,[place] [address] GLUCOSE CHALLENGE TEST 1 HOUR 97 LESS THAN 140 REASON FOR VISIT 4WK PN MEDICAL (GENERAL) HISTORY Type Description Date [...] Notes Treatment Notes Treatm ent Clinical Notes Feb, Maternal care due to low tra nsverse uterine scar from previous delivery (ICD-10 - O34.211) Feb, History of pre-eclampsia in prior , currently in second trimester (ICD-10 - O09.292) Feb, 24 weeks gestation of (ICD-10 - Z3A.24 ) PLAN OF TREATMENT Next Appt Details 4 Weeks Reason:PN Provider Name:Peewee Suarez, 2021-03-29 03:45:00 PM, [address] [place] [address], [address] [place] [address], [place], [address], Provider Name:Chandni Avelar, 2021-04-16 0 3:20:00 PM, [address] [place] [address], [address] [place] [address], [place], [address], Provider Name:Peewee Suarez, 2021-05-01 03:45:00 PM, [address] [place] [address], , [place], [address], Provider Name:Chandni Avelar, 2021-05-22 0 3:20:00 PM, [address] [place] [address], , [place], [address], Provider Name:Chandni Avelar, 2021-06-13 0 7:30:00 AM, [address] [place] [address], [address] [place] [address], [place], [address], Provider Name:Viktoriya Medina, 2021-06-13 0 7:30:00 AM, [address] [place] [address], [address] [place] [address], [place], [address], Follow Up:4 WeeksPN Insurance Providers Payer Name Payer Address Payer Phone Insured Name Patient Relati onship to Insured Coverage Start Date Coverage End Date BCBS [facility] [id number] [facility] [place] [address] MARIA WELLS self
[2021-06-13] MEDS ORDERED: ceFAZolin SOD 2 GM in IV 1 EA IV ONE (06:00)
[2021-06-13] MEDS ORDERED: LR 1,000 ML IV ONE (06:00)
[2021-06-13] MEDS ORDERED: BICITRA 30ML SOLN UDC PO ONE (06:00)
[2021-06-13 06:43] LABS: HEMATOCRIT 39.9 % (36.0-47.0); HEMOGLOBIN 13.8 g/dl (12.0-15.5); MEAN CORPUSCULAR HEMOGLOBIN 31.7 pg (27.0-33.0); MEAN CORPUSCULAR HGB CONC 34.6 g/dl (32.0-36.5); MEAN CORPUSCULAR VOLUME 91.7 fl (80.0-96.0); PLATELET COUNT, AUTOMATED 252 10^3/uL (150-450); RED BLOOD COUNT 4.35 10^6/uL (4.00-5.40); WHITE BLOOD COUNT 11.5 10^3/uL (4.0-10.0)
[2021-06-13] MEDS ORDERED: LR 1,000 ML IV SCH ×3 (07:00→11:00)
--- NOTE | 2021-06-13 07:22 | ROOPDOC ---
[facility] Report Of Operation Report of Operation DATE OF PROCEDURE: 06/13/21 SURGEON: Mitzi Avelar M.D. SHOT PEENING OPERATOR: Gayatri Medina CNM ( essential for tissue retractions, exposure and delivery of ) PROCEDURE: Repeat section PREOPERATIVE DIAGNOSIS: 1. History of prior section POSTOPERATIVE DIAGNOSIS: 1. History of prior section ANESTHESIA: Spinal ESTIMATED BLOOD LOSS: 700 mL URINE OUTPUT: 50 mL INTRAVENOUS FLUIDS: 1000 mL of lactated Ringer's solution PREOPERATIVE ANTIBIOTICS: 2 g of Ancef OPERATIVE FINDINGS: Liveborn female infant, Apgars 8 and 9. Weight 3620 g or 8 pounds 0 ounces SPECIMENS: None DESCRIPTION OF PROCEDURE: After informed consent was obtained and written consent was reviewed. The patient was brought to the operating room where spinal anesthesia was placed. She was then placed in the supine position with a left lateral tilt. Reynoso catheter was placed and to gravity. Patient was then prepped and draped in the normal sterile fashion. A timeout operating room was performed identifying the patient, procedure be performed as well as drug allergies. Anesthesia was tested and deemed to be adequate. Pfannenstiel skin incision was made and this was carried down to the underlying rectus fascia. The fascia was then scored and this incision was extended bilaterally. The fascia was then dissected off the underlying rectus muscle superiorly and inferiorly. The rectus muscles were then in the midline. The peritoneum is then entered. Vesicouterine peritoneum was then tented and excised and a bladder flap was created. Mobius retractor was then placed. Next, a curvilinear incision was then made in the lower uterine segment. Amniotomy was performed, productive, clear fluid. The head was brought to the level of the incision atraumatically and delivered along the shoulders and corpus. The cord was clamped x2. The infant was brought over to the warmer with a good cry. Placenta was drained and delivered grossly intact. The uterus was cleared of all clots and debris and the uterine incision was then closed using 0 Vicryl in a running locking fashion followed by a second layer of 0 Vicryl in a running nonlocking fashion for imbrication. The abdomen suctioned. Surgical sites reinspected and noted be hemostatic. The retractor was then removed. The rectus muscles were reapproximated 3-0 Vicryl. The fascia was then closed using 0 Vicryl in a running nonlocking fashion. The subcutaneous tissues was then irrigated and suct ioned. Subcutaneous tissue was reapproximated using 3-0 Vicryl. Several subdermal stitch is placed using 3-0 Vicryl and the skin was closed with 4-0 Monocryl and subcuticular fashion. This incision was then cleaned and dried and was dressed. The patient was then taken to recovery in stable condition. All counts were correct. The couple has decided to name the Romina. My regional vice president surgical sales Sherley Medina played in an essential role during the operation. She assisted with tissue identification retraction, delivery of the , as well as wound closure. MITZI AVELAR MD. Jun 13, 2021 07:22
[2021-06-13] MEDS ORDERED: NALBUPHINE HCL 10 MG/ML AMP (J2300) IV PRN (07:48)
[2021-06-13] MEDS ORDERED: diphenhydrAMINE 50MG/ML VIAL (J1200) IV PRN (07:48)
[2021-06-13] MEDS ORDERED: METOCLOPRAMIDE INJ 10MG/2ML VIAL (J2765 PER 1) IV PRN ×3 (07:48→09:15)
[2021-06-13] MEDS ORDERED: NALOXONE INJ 0.4MG/1ML VIAL (J2310 PER 1MG) IV PRN ×2 (07:48)
[2021-06-13] MEDS ORDERED: ONDANSETRON 4MG/2ML VIAL IV PRN ×2 (07:48→09:15)
[2021-06-13] MEDS ORDERED: MORPHINE PRES-FREE INJ 10 MG/10 ML VIAL (J2274) As Ordered ONE (08:01)
[2021-06-13] MEDS ORDERED: OXYTOCIN 30 UNITS IN 0.9% NaCl 500ML IV BAG (J2590) As Ordered ONE ×2 (08:01→09:11)
[2021-06-13] MEDS ORDERED: PHENYLephrine 500MCG 5ML (100MCG/ML) SYRINGE As Ordered ONE (08:01)
[2021-06-13] MEDS ORDERED: ePHEDrine SULFATE 25 MG/5 ML(5MG/ML) SYRINGE As Ordered ONE (08:01)
[2021-06-13] MEDS ORDERED: KETOROLAC 60MG 2ML VIAL As Ordered ONE (08:17)
[2021-06-13] MEDS ORDERED: ONDANSETRON 4MG/2ML VIAL As Ordered ONE (08:17)
[2021-06-13] MEDS ORDERED: fentaNYL 100 MCG/2 ML INJECTION (J3010) As Ordered ONE (08:20)
[2021-06-13] MEDS ORDERED: IBUPROFEN 800 MG TAB PO PRN (09:15)
[2021-06-13] MEDS ORDERED: fentaNYL 100 MCG/2 ML INJECTION (J3010) IV PRN (09:15)
[2021-06-13] MEDS ORDERED: MEASLES,MUMPS,RUBELLA VACCINE INJ (MMR-II) (90707) SC SCH (09:15)
[2021-06-13] MEDS ORDERED: NORCO, ANEXSIA 5/325MG TABLET (HYDROcodone/ACETAMINOPHEN) PO PRN (09:15)
[2021-06-13] MEDS ORDERED: OXYTOCIN DRIP 30 UNITS in IV 1 EA IV SCH ×4 (09:15)
[2021-06-13] MEDS ORDERED: PROMETHAZINE 25 MG TAB PO PRN (09:15)
[2021-06-13] MEDS ORDERED: METHYLERGONOVINE MALEATE 0.2 MG TAB PO PRN (09:15)
[2021-06-13] MEDS ORDERED: SIMETHICONE 80MG CHEW TAB PO PRN (09:15)
[2021-06-13] MEDS ORDERED: IBUPROFEN 600MG TAB PO PRN (09:15)
[2021-06-13] MEDS ORDERED: MOM 30ML SUSPENSION UDC PO PRN (09:15)
[2021-06-13] MEDS ORDERED: RHOGAM 300 MCG (1500 IU) INJ (J2790) IM SCH (09:15)
[2021-06-13] MEDS ORDERED: PERCOCET 5MG/325MG TAB PO PRN (09:15)
[2021-06-13] MEDS ORDERED: NORCO, ANEXSIA 5/325MG TABLET (HYDROcodone/ACETAMINOPHEN) As Ordered ONE (09:30)
[2021-06-13] MEDS: NORCO, ANEXSIA 5/325MG TABLET (HYDROcodone/ACETAMINOPHEN) PO PRN (09:31)
[2021-06-13] MEDS ORDERED: HYDR-3715 PO (12:00)
[2021-06-13] MEDS ORDERED: IBUP80TA PO (12:00)
[2021-06-13] MEDS: KETOROLAC 30 MG/ML 1ML VIAL IV SCH ×2 (16:03→21:15)
[2021-06-13] MEDS: DOCUSATE SODIUM 100MG CAPSULE PO SCH (21:15)
[2021-06-14] MEDS: NORCO, ANEXSIA 5/325MG TABLET (HYDROcodone/ACETAMINOPHEN) PO PRN ×2 (01:29→12:54)
[2021-06-14 02:00] VITALS: BP 119/71
[2021-06-14] MEDS: KETOROLAC 30 MG/ML 1ML VIAL IV SCH (04:00)
[2021-06-14 06:00] VITALS: BP 124/79
[2021-06-14] MEDS ORDERED: ONDANSETRON 4MG/2ML VIAL IV PRN (07:00)
[2021-06-14] MEDS: DOCUSATE SODIUM 100MG CAPSULE PO SCH (08:15)
[2021-06-14 08:44] LABS: HEMATOCRIT 32.6 % (36.0-47.0); MEAN CORPUSCULAR HEMOGLOBIN 31.6 pg (27.0-33.0); MEAN CORPUSCULAR HGB CONC 33.7 g/dl (32.0-36.5); MEAN CORPUSCULAR VOLUME 93.7 fl (80.0-96.0); PLATELET COUNT, AUTOMATED 170 10^3/uL (150-450); RED BLOOD COUNT 3.48 10^6/uL (4.00-5.40); WHITE BLOOD COUNT 13.7 10^3/uL (4.0-10.0)
[2021-06-14] MEDS ORDERED: METOCLOPRAMIDE INJ 10MG/2ML VIAL (J2765 PER 1) IV PRN (09:00)
[2021-06-14] MEDS ORDERED: PRENATAL VITAMINS CHEWABLE TABLET PO SCH (09:00)
[2021-06-14 10:00] VITALS: BP 131/87
[2021-06-14] MEDS ORDERED: IBUPROFEN 800 MG TAB PO SCH ×2 (11:00→11:25)
--- NOTE | 2021-06-14 13:21 | DS.PDOC ---
Discharge Summary General Date of Admission Jun 13, 2021 at 05:40 Date of Discharge 06/14/21 Discharge Summary DATE OF ADMISSION: 06/13/2021 DATE OF DISCHARGE: 06/14/2021 ADMISSION DIAGNOSIS: 39+ weeks gestation, history of low transverse section declining trial of labor DISCHARGE DIAGNOSIS: Same DISCHARGE SUMMARY: The patient was admitted at 39+ weeks gestation for a scheduled elective repeat low transverse section. The section delivery was uncomplicated. Her postoperative course was uncomplicated as well. On postoperative day #1, she was meeting all discharge criteria and highly desirous of being discharged to home. PHYSICAL EXAMINATION ON DATE OF DISCHARGE: Normotensive. Normal heart rate. Afebrile. ABDOMEN: Soft, nontender, nondistended. Incision bandage clean and dry. EXTREMITIES: Nonedematous, nontender. She was meeting all discharge criteria on postoperative day #1. We reviewed routine fever, infectious, pain, and bleeding precautions. She is to followup in 2 weeks for incision check. Her postoperative medications are Percocet, Motrin, and Colace. Vital Signs/I&Os Vital Signs Date Time Temp Pulse Resp B/P (MAP) Pulse Ox O2 Delivery O2 Flow Rate FiO2 06/14/21 12:54 18 06/14/21 10:00 97.0 105 131/87 (102) 98 Room Air I&O- Last 24 Hours up to 6 AM 06/14/21 06:00 Intake Total 2388.5 ml Output Total 5400 ml Balance -3011.5 ml Laboratory Data Labs 24H Laboratory Tests 2 06/14/21 08:17: Nucleated Red Blood Cells % (auto) 0.0 CBC/BMP Laboratory Tests 06/14/21 08:17 Discharge Medications Scheduled Aspirin (Low Dose Aspirin EC) 81 Mg Tablet.dr, 81 MG PO DAILY, (Reported) Ibuprofen (Ibuprofen) 800 Mg Tablet, 800 MG PO Q8H Omeprazole (Omeprazole) 20 Mg Capsule.dr, 20 MG PO DAILY, (Reported) Pnv No.118/Iron Fumarate/FA ( 19 Chewable Tablet) 1 Chw Chw, 1 TAB PO DAILY, (Reported) Trazodone HCl (Trazodone HCl) 50 Mg Tab, 25 MG PO QPM, (Reported) Scheduled PRN Famotidine (Famotidine) 20 Mg Tablet, 20 MG PO DAILYPRN PRN for HEARTBURN, (Reported) Hydrocodone/Acetaminophen (Hydrocodone-Acetamin 5-325 mg) 1 Each Tablet, 1 TAB PO Q6H PRN for MODERATE PAIN (PS 5-7) Ondansetron HCl (Zofran) 4 Mg Tablet, 4 MG PO Q8HP PRN for NAUSEA, (Reported) Allergies Coded Allergies: No Known Allergies (Unverified , 05/17/18) THUY FUENTES DO Jun 14, 2021 13:21
[2021-06-14 14:00] VITALS: BP 126/84
== END 2021-06-14 14:37 | disposition home or self-care (01) | DRG 540 ==
LOC: M LDI 05:40 → M OBS 10:35
PROVIDERS: ADMIT Obstetrics & Gynecology; ATTEND Obstetrics & Gynecology
PROC: 10D00Z1 Extraction of Products of Conception, Low, Open Approach (ICD-10-PCS; principal; 2021-06-13 07:30)
DX: O34.211 Maternal care for low transverse scar from previous cesarean delivery (principal); Z37.0 Single live birth; Z3A.39 39 weeks gestation of pregnancy

== ENCOUNTER → 2021-10-01 | Outpatient (CLI) | payer BC ==
[~2021-10-01] MED LIST changes: +HYDR-3715 PO; +IBUP80TA PO
[2021-10-01 06:59] LABS: BASO # 0.1 10^3/uL (0.0-0.2); BASO % 0.8 % (0.0-1.0); EOS # 0.1 10^3/uL (0.0-0.5); EOS % 1.8 % (0.0-3.0); HEMATOCRIT 43.2 % (36.0-47.0); HEMOGLOBIN 14.6 g/dl (12.0-15.5); LYMPH # 2.6 10^3/uL (1.5-5.0); LYMPH % 34.2 % (24.0-44.0); MEAN CORPUSCULAR HEMOGLOBIN 30.4 pg (27.0-33.0); MEAN CORPUSCULAR HGB CONC 33.8 g/dl (32.0-36.5); MONO # 0.8 10^3/uL (0.0-0.8); NEUTROPHILS # 4.1 10^3/uL (1.5-8.5); NEUTROPHILS % 52.9 % (36.0-66.0); PLATELET COUNT, AUTOMATED 292 10^3/uL (150-450); WHITE BLOOD COUNT 7.7 10^3/uL (4.0-10.0)
[2021-10-01 07:35] LABS: ALBUMIN 4.3 GM/DL (3.2-5.2); ALT/SGPT 29 U/L (12-78); BILIRUBIN,TOTAL 0.5 MG/DL (0.2-1.0); BLOOD UREA NITROGEN 24 MG/DL (7-18); CALCIUM LEVEL 8.6 MG/DL (8.5-10.1); CARBON DIOXIDE LEVEL 29 MEQ/L (21-32); CHLORIDE LEVEL 107 MEQ/L (98-107); CHOLESTEROL LEVEL 192 MG/DL (<200); CREATININE FOR GFR 0.96 MG/DL (0.55-1.30); FREE T4 1.02 NG/DL (0.76-1.46); GLOMERULAR FILTRATION RATE > 60.0 (>60); GLUCOSE, FASTING 89 MG/DL (70-100); HDL CHOLESTEROL 58 MG/DL (>40); LDL CHOLESTEROL 122 MG/DL (<100); NON-HDL-C 134 MG/DL; SODIUM LEVEL 142 MEQ/L (136-145); TOTAL PROTEIN 7.2 GM/DL (6.4-8.2); TRIGLYCERIDES LEVEL 62 MG/DL (<150)
== END ==
LOC: M LAB 06:36
PROVIDERS: ATTEND Family Medicine
DX: Z13.29 Encounter for screening for other suspected endocrine disorder (principal); Z13.0 Encounter for screening for diseases of the blood and blood-forming organs and certain disorders involving the immune mechanism; Z13.220 Encounter for screening for lipoid disorders

== ENCOUNTER → 2021-10-02 | Outpatient (REF) | payer BC ==
[2021-10-02 10:21] LABS: APPEARANCE, URINE CLEAR (CLEAR); BACTERIA, URINE AUTO NEGATIVE (NEGATIVE); BILIRUBIN, URINE AUTO NEGATIVE (NEGATIVE); BLOOD, URINE BLOOD NEGATIVE (NEGATIVE); COLOR, URINE STRAW (YELLOW); GLUCOSE, URINE (UA) AUTO NEGATIVE (NEGATIVE); KETONE, URINE AUTO NEGATIVE (NEGATIVE); LEUKOCYTE ESTERASE, URINE AUTO NEGATIVE (NEGATIVE); NITRITE, URINE AUTO NEGATIVE (NEGATIVE); PROTEIN, URINE AUTO NEGATIVE (NEGATIVE); RBC, URINE AUTO 0 /HPF (0-3); SPECIFIC GRAVITY URINE AUTO 1.004 (1.002-1.035); SQUAMOUS EPITHELIAL CELL UR AU 0 /HPF (0-6); UROBILINOGEN, URINE AUTO 0.2 mg/dL (0.0-2.0); WBC, URINE AUTO 1 /HPF (0-3)
== END ==
LOC: M LAB REF 09:15
PROVIDERS: ATTEND Physician Assistant
DX: R30.0 Dysuria (principal)

== ENCOUNTER → 2021-10-18 | Outpatient (REF) ==
[2021-10-18 14:45] LABS: RSV AMPLIFICATION NEGATIVE (NEGATIVE)
== END ==
LOC: M LABSMTC 11:06
PROVIDERS: ATTEND Family Medicine
DX: Z20.822 Contact with and (suspected) exposure to COVID-19 (principal)

== ENCOUNTER → 2021-10-18 | Outpatient (REF) | payer BC | LOC: M LAB REF 16:56 | PROVIDERS: ATTEND Family Medicine | DX: R35.0 Frequency of micturition (principal) ==